=== PATIENT | male | born 1940 | race Caucasian/White ===

== ENCOUNTER 2020-05-11 11:25 | Inpatient (IN) | payer MEDICARE, BC ==
[2020-05-11 12:07] LABS: #Eosinphils 0.6 thou/uL (0.0-0.7); #Lymphocytes 2.6 thou/uL (1.20-3.40); #Monocytes 0.9 thou/uL (0.11-0.59); #Neutrophils 5.8 thou/uL (1.40-6.50); %Basophils 0.3 % (0.0-1.0); %Eosinophils 6.3 % (0.0-10.0); %Lymphocytes 25.9 % (21.0-51.0); %Monocytes 8.6 % (0.0-10.0); %Neutrophils 58.8 % (42.0-75.0); Hemoglobin 11.3 g/dL (14.0-18.0); Mean Corpuscular Hemoglobin 28.1 pg (27.0-31.0); Mean Corpuscular Volume 87.8 fL (78.0-98.0); Mean Platelet Volume 10.1 fL (7.4-10.4); Platelet Count 231 thou/uL (130-400); Red Blood Cell (RBC) Count 4.02 mill/uL (4.70-6.10); White Blood Cell (WBC) Count 9.9 thou/uL (4.8-10.8)
--- NOTE | 2020-05-11 12:12 | RAD ---
Exam: Chest one view HISTORY:Chest pain Comparison: 03/11/2020 FINDINGS: Cardiac silhouette:Cardiomegaly. Stable loop recorder and sternotomy wires. Aorta: Atherosclerosis. Pulmonary vessels: Normal Costophrenic angles: Clear Incidentals: Stable hiatal hernia. LUNGS: No masses or consolidation. Pneumothorax: None Osseous abnormalities: No acute abnormality IMPRESSION: 1. Atherosclerosis 2. No acute cardiopulmonary process.
[2020-05-11 12:26] LABS: ALT (SGPT) 10 U/L (8-55); AST (SGOT) 15 U/L (5-34); Albumin 3.7 g/dL (3.4-4.8); Alkaline Phosphatase 86 U/L (40-110); Anion Gap 17 mmol/L (10-20); BUN (Urea Nitrogen) 27 mg/dL (8.4-25.7); Bilirubin, Total 0.2 mg/dL (0.2-1.2); Calc. Creatinine Clearance 0 mL/min (70-130); Calcium 9.3 mg/dL (7.8-10.44); Carbon Dioxide 22 mmol/L (23-31); Chloride 106 mmol/L (98-107); Estimated GFR-MDRD 48; Globulin 2.4 g/dL (2.4-3.5); Glucose 280 mg/dL (83-110); Potassium 4.6 mmol/L (3.5-5.1); Protein, Total 6.1 g/dL (5.8-8.1); Sodium 140 mmol/L (136-145)
[2020-05-11 12:51] LABS: CKMB 2.5 ng/mL (0-6.6)
[2020-05-11] MEDS ORDERED: Metoprolol Tartrate 5 MG/5 ML VIAL ONE (13:32)
[2020-05-11] MEDS ORDERED: Nitroglycerin 2% Ointment 1 INCH/1 GM Packet ONE (13:32)
[2020-05-11] MEDS ORDERED: Iopamidol-370 76% 500 ML 1 ML ONE (13:50)
[2020-05-11 15:02] LABS: Troponin I 0.151 ng/mL (< 0.028)
--- NOTE | 2020-05-11 15:52 | CT ---
CT arteriogram chest with IV contrast and 3-D imaging HISTORY: Chest pain. Shoulder pain. FINDINGS: There is good contrast opacification pulmonary arteries and thoracic aorta with normal bran nikhil of the great vessels at the aortic arch. Postoperative changes mediastinum are apparent with calcification in the arterial structures. Nonenlarged, nonspecific lymph nodes are scattered about the mediastinum. No lobar consolidation, pleural fluid, or pneumothorax. Approximately one third of the stomach is abo ve the level of the diaphragm Within the partially visualized upper abdomen, left renal cyst and retroaortic left renal vein are ap parent. IMPRESSION : No CT evidence of pulmonary embolus. Moderate-sized hiatal hernia.
[2020-05-11] MEDS ORDERED: Ondansetron PF 4 MG/2 ML Vial IVP PRN (16:26)
[2020-05-11] MEDS ORDERED: Sodium Chloride 0.9% 1,000 ML IV SCH (16:26)
[2020-05-11] MEDS ORDERED: Ondansetron ODT 4 MG TAB SL PRN (16:26)
[2020-05-11 16:30] VITALS: BMI 27.0
[2020-05-11] MEDS ORDERED: Dextrose 50% Abboject 50 ML SYRINGE SLOW IVP PRN (16:30)
[2020-05-11] MEDS ORDERED: Dextrose 5% in Water 1,000 ML IV PRN (16:30)
[2020-05-11] MEDS ORDERED: Nitroglycerin 0.4 MG TAB (25 Tab Bottle) PO PRN (16:30)
[2020-05-11] MEDS: HumaLOG 300 UNITS/3 ML VIAL SC PRN ×2 (16:54→22:09)
--- NOTE | 2020-05-11 17:06 | HP ---
PRIMARY CARE PHYSICIAN: Dr. Scar Aiken. CHIEF COMPLAINT: "Bilateral shoulder pain that feels like it did when I had my CABG." HISTORY OF PRESENT ILLNESS: The patient is a pleasant 79-year-old male with past medical history significant for diabetes, TIAs, AFib, hypertension, high cholesterol, and recent CABG. The patient's is currently in the CCU at the hospital and he came to see her this morning, which he stated was a longer walk than he usually does. When he got home, home therapy was there waiting for him and he walked around a block with them. Shortly after where he began to have bilateral shoulder pain, he states that this is the same feeling that he had when he had his CABG 2 months ago except at that time he had chest pressure and at this time, he did not have chest pressure. He took 2 nitroglycerin at home, which did not help his pain and so then he called 911. The patient was diaphoretic at the time. Denies nausea. Denies any kind of injury to the shoulders. States since his CABG, he has not lifted anything heavier than a gallon of milk. In the ER today, they completed lab work and EKG and a chest x-ray. He was given one inch of nitro-bid, 500 ml of NS, and metoprolol tartrate IV 5mg. PAST MEDICAL HISTORY: Diabetes type 2, TIAs, multiple AFib, hypertension, high cholesterol. PAST SURGICAL HISTORY: Heart ablation, loop recorder, carotid endarterectomy, heart catheterization with a total of 3 stents placed, the last one was a year ago and a CABG x4, which was within the past 2 months. ALLERGIES: PENICILLIN AND SIMVASTATIN. MEDICATIONS: Patient unable to recall. SOCIAL HISTORY: The patient lives at home with his , she is currently in CCU after having heart surgery. Denies any alcohol or illicit drugs or smoking history. FAMILY HISTORY: Negative for any pertinent information at this time. REVIEW OF SYSTEMS: All other review of systems are negative unless noted in the HPI. PHYSICAL EXAMINATION: VITAL SIGNS: Blood pressure 154/72, pulse 68, respiratory rate 18, temperature 97.9, 99% on room air. GENERAL: The patient in no acute distress. Nontoxic. HEENT: Head; atraumatic, normocephalic. Extraocular muscles intact. PERRLA. Moist mucous membranes. NECK: No lymphadenopathy. Trachea midline. RESPIRATORY: Clear to auscultation bilaterally. No wheezing. No rhonchi. No rales. CARDIOVASCULAR: Regular rate and rhythm. No murmurs, no rubs, no gallops. ABDOMEN: Bowel sounds present. No distention. No mass. CHEST: Well-healed CABG scar at sternum. EXTREMITIES: No cyanosis, no clubbing, no edema. A well-healed CABG to the left upper thigh graft site. NEUROLOGIC: No focal deficits. Cranial nerves intact. PSYCHIATRIC: Normal affect. Normal behavior. LABORATORY DATA: EKG showed sinus rhythm, prolonged QT 76 beats per minute. Initial troponin 0.123. BNP 379.7. D-dimer 0.48. CK-MB 2.5. Sodium 140, potassium 4.6, BUN 27, creatinine 1.42, GFR 48, glucose 280. White blood cells 9.9, hemoglobin 11.3, hematocrit 35.3, platelets 231. Chest x-ray shows atherosclerosis and no acute cardiopulmonary process, stable loop recorder and sternotomy wires. IMPRESSION AND PLAN: 1. Chest pain, rule out acute coronary syndrome. We will continue to trend troponins. First on eis indeterminate, if they continue to rise, will consult Cardiology. CTA ordered due to the elevated D-dimer, of note the patient is on Eliquis. Cardiac stress test ordered for the morning at this time, will cancel if troponins continue to rise. We will monitor the patient on telemetry overnight. Nothing to drink after midnight. 2. Hypertension, stable at this time. We can restart home medications and have antihypertensive PRN medications available as needed. 3. Diabetes, Accu-Cheks a.c. and nightly with sliding scale insulin. 4. Deep venous thrombosis prophylaxis covered with Eliquis. Gastrointestinal prophylaxis in place. 5. The patient wishes to be a full code and surrogate decision maker is his , Diana Posey. Pt. discussed with Dr. Hernando Sharma ID: [id number] DENNY
[2020-05-11 20:23] LABS: Troponin I 0.602 ng/mL (< 0.028)
[2020-05-11] MEDS: Carvedilol 3.125 MG TAB PO SCH (22:08)
[2020-05-11] MEDS: Nitroglycerin 2% Ointment 1 INCH/1 GM Packet TOP SCH (22:08)
--- NOTE | 2020-05-11 22:15 | CON ---
DATE OF CONSULTATION: 05/11/2020 INDICATION FOR CONSULTATION: A 79-year-old gentleman with history of coronary artery disease, underwent bypass surgery approximately 2 months ago at [facility] with either triple or quadruple bypass. He said he had quadruple bypass performed by Dr. Eisenberg. This gentleman had been doing very well after his surgery, then presented to the emergency room after having some shoulder discomfort and chest discomfort similar to what he had prior to undergoing bypass surgery. He had been doing very well since his bypass, was at home, had been having physical therapy and after the physical therapy, he went to lie down and noticed he had some chest discomfort. He did take some nitroglycerin, but does not state he had any relief. He took another nitroglycerin, still no relief and he then presented to the emergency room where EKG showed some normal sinus rhythm with decreased R-wave progression in V1 through V3, but no acute ST-segment changes were noted. Cardiac enzymes are indeterminate with a troponin I of 0.123, increased up to 0.151. His BNP was 379. At this time, he denies any chest pain, is very comfortable and answers to questions appropriately. He does not recall exactly what medications he is taking. However, review of the records shows that he was taking medications in the past, but there is no indication he was taking a beta maribell. He is somewhat bradycardic, but otherwise appears to be relatively stable. I do not know whether he was placed on a beta maribell after bypass surgery or not. I do not know what his baseline heart rate is, but today the heart rate today was up to 76 beats per minute, but on the monitor it was 59. At this time in the emergency room, there was no evidence of pulmonary emboli noted. He was noted to have a hiatal hernia. Chest x-ray was unremarkable. At this time, he appears to be relatively stable. We will continue to monitor the patient. PAST MEDICAL HISTORY: Significant for the coronary artery disease, bypass surgery. He has had angioplasty and stent placements prior to undergoing the bypass surgery. He has a history of intermittent atrial fibrillation in the past. He remains in sinus rhythm at this time, and history of diabetes, history of TIAs, history of hypertension, hypercholesterolemia. He apparently has had an ablation in the past for possibly atrial fibrillation. He is unsure exactly what he wants. He also has a loop recorder implanted. This was done by Dr. Hazel at [facility]. He has had bilateral carotid endarterectomy performed by Dr. Shailesh Eisenberg. His 1st angioplasty and stent placements were about 5 or 6 years ago and then he also had further stents, he said prior to undergoing bypass surgery. His. SOCIAL HISTORY: He is . He has 1 son who is alive and well. He has no alcohol or tobacco abuse. 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 FAMILY HISTORY: Noncontributory except for one brother who had some myocardial infarction in his 30s, but when he was in his 50s. ALLERGIES: HE IS ALLERGIC TO PENICILLIN AND SIMVASTATIN. MEDICATIONS: He is unclear about what medicines he is taking, but he did admit to takin. Losartan. 2. Hydrochlorothiazide. 3. Lantus insulin. 4. Eliquis. 5. Gemfibrozil. 6. CoQ10. 7. Aspirin. RE VIEW OF SYSTEMS: Unremarkable except for the patient says he wears glasses. Has gastroesophageal reflux disease. Has occasional leg cramps and the remainder as was noted in history of present illness. PHYSICAL EXAMINATION: GENERAL: Reveals a well-developed, well-nourished, very pleasant gentleman who is in no acute distress at this time and denies any chest pain or shortness of breath. VITAL SIGNS: Shows a blood of pressure 159/81, heart rate is 59 to 70s, shows a sinus rhythm, temperature he is afebrile, respiratory rate 16. HEENT: Shows the head to be normocephalic and atraumatic. He has well-healed surgical incision after a carotid endarterectomy. Carotid pulses are present. There were no bruits noted chest was clear to auscultation without rales, rhonchi, or wheezing. He has a well-healed midline surgical incision after median sternotomy cardiovascular reveals a regular rate and rhythm. Normal S1, S2. I do not hear an S3 nor an S4. There were no significant murmurs, heaves, thrills, bruits, or rubs noted. ABDOMEN: Soft and nontender with positive bowel sounds. No organomegaly or masses noted. EXTREMITIES: Femoral pulses are present. Popliteal pulses are present. Pedal pulses are difficult to palpate. He has well-healed surgical incision in the left leg after saphenous vein graft retrieval. There is no edema noted. NEUROLOGIC: The patient appears to be fully intact. SKIN: Warm and dry. IMAGING: EKG shows a normal sinus rhythm with decreased R-wave progression in V1 through V3, but no acute changes. The QT does appear to be slightly prolonged. LABORATORY DATA: Shows the troponin as noted above. The BNP was 379. Sodium was 140, potassium 4.6, BUN was 27 with a creatinine of 1.42, and blood sugar was 280. D-dimer was 0.48, hemoglobin 11.3, WBC of 9.9, and platelet count of 231,000. IMPRESSION: 1. A 79-year-old patient with probable non ST-segment elevation myocardial infarction with mild increase in cardiac enzymes. We will continue to trend the enzymes. He is pain free at this time and no significant EKG changes. Should the enzymes continue to go upwards, then we may need to perform a cardiac catheterization tomorrow to evaluate the saphenous vein grafts and also to evaluate further possible progression of coronary artery disease. I do not have an old cardiac catheterization report nor do I have his bypass surgery report, which would be certainly advisable and helpful should we do that if we needed to undergo a bypass surgery. At this time, he is stable. I will start him on a low dose of beta blockers in this patient. We will continue the aspirin. We will start him on his losartan for the hypertension and most likely will give at least 1 dose of Lovenox, if he has not already had that in the emergency room. 2. History of diabetes. It will be dealt with by the primary care service. 3. History of transient ischemic attacks. This will also be dealt by the primary care service. 4. History of atrial fibrillation. He remains in sinus rhythm at this time. At this time, we will hold the Eliquis in case he needs to undergo cardiac catheterization. 5. He can certainly follow up with Dr.Bau Wong, his primary concrete bucket hooker, to determine whether or not he needs to continue the Eliquis in the future. 6. Stage 3 chronic kidney disease. His creatinine is 1.42, but remained stable. 7. At this time, overall the patient is stable. We will continue to trend the enzymes. We will try to obtain records from [facility] concerning his previous cardiac catheterization, bypass surgeries as well as an echocardiogram that was performed hopefully within the last couple of months. We will also try to obtain more recent list of his medications since he does not know the medication. It does not appear that he is on a beta maribell, we will start a very low dose of Coreg, half of the 3.125 mg tablet. Job ID: [id number] MTDD
[2020-05-11] MEDS ORDERED: Enoxaparin Sodium 80 MG/0.8 ML SYRINGE SC SCH (23:00)
[2020-05-11 23:18] LABS: PTT 30.7 sec (22.9-36.1); Prothrombin Time 13.4 sec (12.0-14.7)
[2020-05-11 23:45] LABS: Troponin I 1.011 ng/mL (< 0.028)
[2020-05-12] MEDS: Nitroglycerin 2% Ointment 1 INCH/1 GM Packet TOP SCH ×3 (05:39→20:49)
[2020-05-12] MEDS: HumaLOG 300 UNITS/3 ML VIAL SC PRN ×3 (06:00→20:49)
[2020-05-12] MEDS: Carvedilol 3.125 MG TAB PO SCH ×2 (08:17→20:50)
[2020-05-12] MEDS ORDERED: Losartan 25 MG TAB PO SCH (09:00)
[2020-05-12] MEDS ORDERED: Aspirin 325 mg Enteric Coated Tablet PO SCH ×2 (09:00→17:45)
[2020-05-12] MEDS ORDERED: Rivaroxaban 2.5 MG TAB PO SCH ×2 (09:43→21:00)
[2020-05-12] MEDS ORDERED: Empagliflozin 10 MG TAB PO SCH (10:00)
[2020-05-12 10:16] LABS: Troponin I 1.453 ng/mL (< 0.028)
[2020-05-12 14:51] LABS: Critical Call Chem Troponin I RESULT DECREASING; Troponin I 1.294 ng/mL (< 0.028)
--- NOTE | 2020-05-12 17:44 | PDOC.HOSPP ---
- Subjective Encounter Date: 05/12/20 Encounter Time: 10:50 Subjective: Pt seen for followup for NSTEMI. Denies chest pain or shortness of breath. - Objective Vital Signs & Weight: Vital Signs (12 hours) Temp Pulse Resp BP Pulse Ox 05/12/20 15:16 97.8 F 57 L 16 130/58 L 97 05/12/20 10:59 98.4 F 61 16 135/65 97 05/12/20 08:16 98.5 F 64 16 146/67 H 97 05/12/20 06:52 96 Weight Weight 188 lb 9 oz I&O: 05/11/20 05/12/20 05/13/20 06:59 06:59 06:59 Intake Total 240 Balance 240 Result Diagrams: 05/11/20 11:44 05/11/20 11:44 Additional Labs: Accuchecks 05/12/20 05/12/20 05/12/20 16:38 10:45 05:46 POC Glucose 143 H 176 H 203 H 05/11/20 19:37 POC Glucose 277 H Labs and MARs reviewed by me EKG Reviewed by me: Yes (Tele: NSR) Hospitalist ROS - Review of Systems Cardiovascular: denies: chest pain, palpitations, orthopnea, paroxysmal noc. dyspnea, edema, light headedness Gastrointestinal: denies: nausea, vomiting, abdominal pain, diarrhea, constipation, melena, hematochezia - Medication Medications: Active Medications Generic Name Dose Route Start Last Admin Trade Name Freq PRN Reason Stop Dose Admin Insulin Human Lispro 0 units 05/11/20 16:30 05/12/20 11:45 Humalog SC 2 unit .MILD SLIDING SCALE PRN Administration Mild Correctional Scale Insulin Human Lispro 0 units 05/11/20 16:30 05/11/20 22:09 Humalog SC 3 unit .BEDTIME SLIDING SC PRN Administration Bedtime Correctional Scale Nitroglycerin 0.5 inch 05/11/20 22:00 05/12/20 14:59 Nitro-Bid 2% Ointment TOP 0.5 inch Q8HR ROGELIO Administration Pantoprazole Sodium 40 mg 05/12/20 09:00 05/12/20 08:17 Protonix PO 40 mg DAILY ROGELIO Administration - Exam General Appearance: awake alert Eye: anicteric sclera ENT: moist mucosa Neck: supple Heart: RRR Respiratory: CTAB, no rales Gastrointestinal: soft, non-tender Extremities: no cyanosis Psychiatric: normal affect, normal behavior Hosp A/P (1) NSTEMI (non-ST elevated myocardial infarction) Code(s): I21.4 - NON-ST ELEVATION (NSTEMI) MYOCARDIAL INFARCTION Status: Acute (2) DM2 (diabetes mellitus, type 2) Status: Chronic (3) HTN (hypertension) Code(s): I10 - ESSENTIAL (PRIMARY) HYPERTENSION Status: Chronic (4) Dyslipidemia Code(s): E78.5 - HYPERLIPIDEMIA, UNSPECIFIED Status: Chronic - Plan Continue aspirin Appreciate cardiology input. HTN controlled. Continue accuchecks and insulin sliding scale. Continue Lipitor. Cardiac Rehab.
[2020-05-12] MEDS: Rivaroxaban 2.5 MG TAB PO SCH (20:50)
[2020-05-12] MEDS ORDERED: Tamsulosin HCl 0.4 MG CAP PO SCH (21:00)
[2020-05-12] MEDS ORDERED: Atorvastatin Calcium 10 MG TAB PO SCH ×2 (21:00)
[2020-05-13 05:31] LABS: #Basophils 0.1 thou/uL (0.0-0.2); #Eosinphils 0.9 thou/uL (0.0-0.7); #Lymphocytes 3.2 thou/uL (1.20-3.40); #Neutrophils 5.5 thou/uL (1.40-6.50); %Basophils 0.9 % (0.0-1.0); %Eosinophils 8.4 % (0.0-10.0); %Lymphocytes 29.9 % (21.0-51.0); %Neutrophils 51.8 % (42.0-75.0); Hemoglobin 11.1 g/dL (14.0-18.0); Mean Corpuscular HGB CONC 31.3 g/dL (32.0-36.0); Mean Corpuscular Hemoglobin 26.9 pg (27.0-31.0); Mean Corpuscular Volume 85.9 fL (78.0-98.0); Mean Platelet Volume 9.8 fL (7.4-10.4); Platelet Count 260 thou/uL (130-400); Red Blood Cell (RBC) Count 4.13 mill/uL (4.70-6.10); White Blood Cell (WBC) Count 10.6 thou/uL (4.8-10.8)
[2020-05-13 05:50] LABS: Anion Gap 14 mmol/L (10-20); BUN (Urea Nitrogen) 29 mg/dL (8.4-25.7); Calc. Creatinine Clearance 56 mL/min (70-130); Calcium 9.5 mg/dL (7.8-10.44); Carbon Dioxide 24 mmol/L (23-31); Chloride 106 mmol/L (98-107); Estimated GFR-MDRD 52; Glucose 175 mg/dL (83-110); Potassium 4.1 mmol/L (3.5-5.1); Sodium 140 mmol/L (136-145)
[2020-05-13] MEDS: Nitroglycerin 2% Ointment 1 INCH/1 GM Packet TOP SCH ×2 (08:27→13:19)
[2020-05-13] MEDS ORDERED: Losartan 25 MG TAB PO SCH (09:00)
[2020-05-13] MEDS ORDERED: Empagliflozin 10 MG TAB PO SCH (09:00)
[2020-05-13] MEDS ORDERED: Aspirin 325 mg Enteric Coated Tablet PO SCH (09:00)
[2020-05-13] MEDS ORDERED: Amiodarone 200 MG TAB PO SCH (09:00)
[2020-05-13] MEDS: Rivaroxaban 2.5 MG TAB PO SCH (09:50)
[2020-05-13] MEDS: Carvedilol 3.125 MG TAB PO SCH (09:51)
[2020-05-13] MEDS ORDERED: Acetaminophen 325 MG TAB PO PRN (11:15)
[2020-05-13 11:34] VITALS: BP 115/62; TEMP 98.2
--- NOTE | 2020-05-13 12:16 | PDOC.CPN ---
- Subjective Date: 05/13/20 Time: 12:35 Interval history: The pt seen and examined. No overnight events. He cont. mild numbness and achy discomfort to bilat shoulders. However, he did not have the symptom, SOB or other cardiac complaints while he was walking around nurse station with nurse today. - Objective Allergies/Adverse Reactions: Allergies Allergy/AdvReac Type Severity Reaction Status Date / Time Penicillins Allergy Unknown Verified 05/12/20 09:38 simvastatin Allergy Unknown Verified 05/12/20 09:38 Visit Medications: Current Medications Acetaminophen (Tylenol) 650 mg PO Q6H PRN PRN Reason: Headache/Fever or Pain Last Admin: 05/13/20 11:23 Dose: 650 mg Amiodarone HCl (Cordarone) 100 mg PO DAILY [facility] Last Admin: 05/13/20 09:51 Dose: 100 mg Aspirin (Ecotrin) 325 mg PO DAILY [facility] Last Admin: 05/13/20 09:50 Dose: 325 mg Atorvastatin Calcium (Lipitor) 10 mg PO HS [facility] Last Admin: 05/12/20 20:50 Dose: 10 mg Carvedilol (Coreg) 3.125 mg PO [phone] [facility] Last Admin: 05/13/20 09:51 Dose: 3.125 mg Dextrose/Water (Dextrose 50%) 25 gm SLOW IVP PRN PRN PRN Reason: Hypoglycemia Glucagon (Glucagon) 1 mg IM PRN PRN PRN Reason: Hypoglycemia Dextrose/Water (D5w) 1,000 mls @ 0 mls/hr IV .Q0M PRN PRN Reason: Hypoglycemia Insulin Human Lispro (Humalog) 0 units SC .MILD SLIDING SCALE PRN PRN Reason: Mild Correctional Scale Last Admin: 05/12/20 11:45 Dose: 2 unit Insulin Human Lispro (Humalog) 0 units SC .BEDTIME SLIDING SC PRN PRN Reason: Bedtime Correctional Scale Last Admin: 05/12/20 20:49 Dose: 2 unit Isosorbide Mononitrate (Imdur Er) 30 mg PO DAILY [facility] Last Admin: 05/13/20 09:51 Dose: 30 mg Losartan Potassium (Cozaar) 100 mg PO DAILY [facility] Last Admin: 05/13/20 09:51 Dose: 100 mg Miscellaneous Medication (Jardiance) 10 mg PO DAILY [facility] Last Admin: 07/02/20 09:50 Dose: 10 mg Nitroglycerin (Nitrostat) 0.4 mg PO Q5MIN PRN PRN Reason: Chest Pain Nitroglycerin (Nitro-Bid 2% Ointment) 0.5 inch TOP Q8HR [facility] Last Admin: 05/13/20 08:27 Dose: Not Given Pantoprazole Sodium (Protonix) 40 mg PO DAILY [facility] Last Admin: 05/13/20 09:51 Dose: 40 mg Rivaroxaban (Xarelto) 2.5 mg PO BID [facility] Last Admin: 05/13/20 09:50 Dose: 2.5 mg Sodium Chloride (Flush - Normal Saline) 10 ml IVF PRN PRN PRN Reason: Saline Flush Tamsulosin HCl (Flomax) 0.4 mg PO HS [facility] Last Admin: 05/12/20 20:50 Dose: 0.4 mg Vital Signs & Weight: Vital Signs Temp Pulse Resp BP BP BP Pulse Ox 05/13/20 11:31 98.2 F 82 16 115/62 95 05/13/20 07:21 98.3 F 81 16 126/65 94 L 05/13/20 03:14 98.4 F 70 16 138/65 96 Weight 188 lb 9 oz - Physical Exam General: alert & oriented x3 HEENT: mucus membranes moist Neck: supple neck Cardiac: regular rate and rhythm, S1/S2 Lungs: decreased breath sounds Extremities: no edema - Labs Result Diagrams: 05/13/20 05:13 05/13/20 05:13 Troponin/CKMB CK-MB (CK-2) 2.5 ng/mL (0-6.6) 05/11/20 11:44 Troponin I 1.294 ng/mL (< 0.028) H* 05/12/20 14:04 - Telemetry Sinus rhythms and dysrhythmias: sinus rhythm - Assessment/Plan Assessment/Plan: 1. NSTEMI type 1 - he cont. having mild numbness and achy like discomfort to bilat shoulders which did not aggravete with exercise with nurse. Waiting for trop level. 2. CAD with s/p CABG x4 in 02/2020 with MEHTA-LAD, RSVG-diag, RSVG-distal OM, RSVG-PDA - Per OR report by Dr Eisenberg, the pt's targets were good conduit but small targets; On Coreg, Losartan, ASA, and Lipitor 3. HTN - stable with current med 4. 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 CKD - slightly improving 6. DM type 2 7. HLD - on Statin MAR reviewed. * Dr Campos's pt ([facility]) * EP: Dr Hazel * From Cardiac standpoint, the pt is stable to d/c home. The pt must f/u with Dr Campos in 1 wk. Pt. seen and eval. by me. I agree with the A/P by the MEDIA SENIOR RECRUITER. He tells me he feels great. He has NSTwave changes. TI still trending down. Chest clear. RRR. He is stable from a cardiac standpoint for d/c. [email or web address]
[2020-05-13 12:28] LABS: Troponin I 0.535 ng/mL (< 0.028)
[2020-05-13] MEDS: HumaLOG 300 UNITS/3 ML VIAL SC PRN (13:19)
--- NOTE | 2020-05-13 15:07 | DIS ---
DATE OF ADMISSION: 05/11/2020 DATE OF DISCHARGE: 05/13/2020 PRIMARY CARE PROVIDER: Dr. Scar Aiken. DISCHARGE DIAGNOSES: 1. [id number] myocardial infarction. 2. Chronic kidney disease, stage 3. 3. History of diabetes mellitus, type 2. CONDITION OF THE PATIENT ON THE DAY OF DISCHARGE: Stable. I assessed Mr. Posey on the day of discharge. He denies any chest pain or shortness of breath. Vital signs are stable. S1 and S2 are heard, regular. Lungs are clear to auscultation bilaterally. DISCHARGE MEDICATIONS: He has been started on Coreg 3.125 mg 2 times a day and isosorbide mononitrate 30 mg daily. Otherwise, no change was made to his pre-admission home medications, which include: 1. Nitroglycerin p.r.n. 2. Tylenol p.r.n. 3. Amiodarone 100 mg daily. 4. Apixaban 2.5 mg 2 times a day. 5. Aspirin 162 mg daily. 6. Lipitor 10 mg daily. 7. Vitamin D3, 1000 units daily. 8. Colchicine 0.6 mg daily. 9. Famotidine 20 mg 2 times a day. 10. Gemfibrozil 600 mg 2 times a day. 11. Lantus insulin 30 units at bedtime and 13 units in the morning. 12. Cozaar 100 mg daily. 13. Magnesium oxide 400 mg 2 times a day. 14. Metformin 500 mg 2 times a day. 15. Multivitamins one tablet daily. 16. Protonix 40 mg daily. 17. Sertraline 50 mg daily. 18. Tamsulosin 0.4 mg daily. 19. Coenzyme Q 100 mg daily. POST-ACUTE CARE FOLLOWUP: With primary care provider in 3 days and with his plasma processor, Dr. Campos on May 21, 2020 at 1 p.m. ACTIVITY: As tolerated. DIET: Heart healthy and diabetic. DISCHARGE DESTINATION: Home. TIME SPENT: Total amount of time spent coordinating this discharge: 33 minutes. Job ID: [id number]
[2020-05-13] MEDS ORDERED: Apixaban 2.5 MG TAB PO SCH (21:00)
[2020-05-14] MEDS ORDERED: Aspirin 81 mg Enteric Coated Tablet PO SCH (09:00)
== END 2020-05-13 16:24 | disposition home health service (06) | DRG 281 ==
LOC: ERS 11:25 → 2SE 16:15
PROVIDERS: ADMIT Internal Medicine; ATTEND Internal Medicine
DX: I21.4 Non-ST elevation (NSTEMI) myocardial infarction (principal); I48.92 Unspecified atrial flutter; N18.3 Chronic kidney disease, stage 3 (moderate); E78.00 Pure hypercholesterolemia, unspecified; I48.91 Unspecified atrial fibrillation; I12.9 Hypertensive chronic kidney disease with stage 1 through stage 4 chronic kidney disease, or unspecified chronic kidney disease; E11.22 Type 2 diabetes mellitus with diabetic chronic kidney disease; E78.5 Hyperlipidemia, unspecified; Z95.1 Presence of aortocoronary bypass graft; Z86.73 Personal history of transient ischemic attack (TIA), and cerebral infarction without residual deficits; Z79.01 Long term (current) use of anticoagulants; Z95.5 Presence of coronary angioplasty implant and graft; Z88.0 Allergy status to penicillin; Z88.8 Allergy status to other drugs, medicaments and biological substances; Z79.4 Long term (current) use of insulin
CPT/HCPCS: 36415; 36416; 71045; 71275; 80048; 80053; 82550; 82553; 83880; 84484; 85025; 85379; 85610; 85730; 93005; 93010; 93306; 94760; J1650; Q9967

== ENCOUNTER 2020-05-18 22:56 | Inpatient (IN) | payer MEDICARE, BC ==
--- NOTE | 2020-05-18 23:23 | RAD ---
Chest AP view INDICATION: Chest pain COMPARISON: May 11, 2020 FINDINGS: Lungs: The lungs are clear Cardiac silhouette: There is stable moderate cardiomegaly. There is stable post-CABG change. There i s a stable loop recorder overlying the left chest wall. Pulmonary vasculature: Normal Pleural spaces: No pleural effusion or pneumothorax is demonstrated. Upper abdomen: No abnormality seen. Osseous structures: No acute osseous abnormality. Additional findings: None. IMPRESSION: No acute cardiopulmonary abnormality.
[2020-05-18 23:37] LABS: #Basophils 0.1 thou/uL (0.0-0.2); #Eosinphils 0.8 thou/uL (0.0-0.7); #Neutrophils 4.7 thou/uL (1.40-6.50); %Basophils 0.6 % (0.0-1.0); %Eosinophils 8.6 % (0.0-10.0); %Lymphocytes 31.3 % (21.0-51.0); %Monocytes 10.7 % (0.0-10.0); %Neutrophils 48.8 % (42.0-75.0); Hemoglobin 10.8 g/dL (14.0-18.0); Mean Corpuscular HGB CONC 32.9 g/dL (32.0-36.0); Mean Corpuscular Hemoglobin 28.2 pg (27.0-31.0); Mean Corpuscular Volume 85.8 fL (78.0-98.0); Platelet Count 270 thou/uL (130-400); Red Blood Cell (RBC) Count 3.83 mill/uL (4.70-6.10); White Blood Cell (WBC) Count 9.7 thou/uL (4.8-10.8)
[2020-05-18] MEDS ORDERED: Nitroglycerin 50 MG/250 ML BOT 250 ML ONE (23:37)
[2020-05-19 00:01] LABS: ALT (SGPT) 15 U/L (8-55); AST (SGOT) 16 U/L (5-34); Albumin 3.5 g/dL (3.4-4.8); Alkaline Phosphatase 96 U/L (40-110); Anion Gap 14 mmol/L (10-20); BUN (Urea Nitrogen) 26 mg/dL (8.4-25.7); Bilirubin, Total 0.2 mg/dL (0.2-1.2); Calc. Creatinine Clearance 0 mL/min (70-130); Calcium 8.8 mg/dL (7.8-10.44); Carbon Dioxide 21 mmol/L (23-31); Chloride 108 mmol/L (98-107); Estimated GFR-MDRD 44; Globulin 2.6 g/dL (2.4-3.5); Glucose 373 mg/dL (83-110); Potassium 4.5 mmol/L (3.5-5.1); Protein, Total 6.1 g/dL (5.8-8.1); Sodium 138 mmol/L (136-145)
[2020-05-19 00:22] LABS: CKMB 1.8 ng/mL (0-6.6)
[2020-05-19] MEDS ORDERED: Morphine 4 MG/ML VIAL SLOW IVP PRN (01:58)
[2020-05-19] MEDS ORDERED: Nitroglycerin 50 MG/250 ML BOT 250 ML IVPB SCH (02:00)
[2020-05-19] MEDS ORDERED: Dextrose 50% Abboject 50 ML SYRINGE SLOW IVP PRN (02:00)
[2020-05-19] MEDS ORDERED: Dextrose 5% in Water 1,000 ML IV PRN (02:00)
[2020-05-19] MEDS ORDERED: Metoprolol Tartrate 5 MG/5 ML VIAL IVP PRN (02:01)
[2020-05-19 02:29] LABS: #Basophils 0.1 thou/uL (0.0-0.2); #Eosinphils 0.9 thou/uL (0.0-0.7); #Lymphocytes 3.3 thou/uL (1.20-3.40); #Monocytes 1.1 thou/uL (0.11-0.59); #Neutrophils 5.2 thou/uL (1.40-6.50); %Basophils 1.1 % (0.0-1.0); %Eosinophils 8.4 % (0.0-10.0); %Lymphocytes 31.1 % (21.0-51.0); %Monocytes 10.1 % (0.0-10.0); %Neutrophils 49.4 % (42.0-75.0); Hemoglobin 10.8 g/dL (14.0-18.0); Mean Corpuscular HGB CONC 32.1 g/dL (32.0-36.0); Mean Corpuscular Hemoglobin 27.6 pg (27.0-31.0); Mean Corpuscular Volume 85.9 fL (78.0-98.0); Mean Platelet Volume 9.5 fL (7.4-10.4); Platelet Count 290 thou/uL (130-400); Red Blood Cell (RBC) Count 3.92 mill/uL (4.70-6.10); White Blood Cell (WBC) Count 10.5 thou/uL (4.8-10.8)
--- NOTE | 2020-05-19 02:51 | HP ---
REASON FOR ADMISSION: Bilateral shoulder pain. HISTORY OF PRESENT ILLNESS: This is a 79-year-old male patient who is presenting with bilateral shoulder pain. He is known to have coronary artery disease, status post CABG in February of 2020 and after that, he had an admission to our hospital on May 11 for bilateral shoulder pain that felt like when he had his CABG. During his stay, his troponin did increase. He was seen by Cardiology. It was thought that no further workup is needed. He was sent home approximately 3 days ago and today his , who is sick as well, was admitted to our hospital, so patient has been here under a lot of stress dealing with her sickness and today, he had recurrence of his bilateral shoulder pain. He presented to the ER, found to be in hypertensive emergency. His pain reminded him of when he had the open-heart surgery. He was started on nitroglycerin drip and feels a bit better. The patient describes the pain as dull in nature, initially severe, but currently mild, not associated with shortness of breath, no diaphoresis. The pain is more on the left than the right. He reports anxiety as well. I did review his records and the patient was recently discharged from this hospital on May 13 and diagnosed with non-ST elevation AZ. His EKG did not show any significant changes and since his troponin did not go further upward, cardiac cath was not done. PAST MEDICAL HISTORY: 1. Carotid disease status, post CABG. 2. Diabetes. 3. TIA. 4. Atrial fibrillation. SOCIAL HISTORY: He does not drink alcohol, does not smoke. FAMILY HISTORY: His brother had an AZ at age 30. ALLERGIES: TO PENICILLIN AND SIMVASTATIN. REVIEW OF SYSTEMS: All systems reviewed and except the above mentioned, found to be negative. PHYSICAL EXAMINATION: GENERAL: Awake, alert, oriented, does not appear in distress. VITAL SIGNS: His blood pressure is 160/90, heart rate of 82, respiratory rate of 21. HEENT: Head is nontraumatic, normocephalic. Pupils equal, reactive. Extraocular movements are intact. Nonicteric sclerae. Well-injected conjunctivae. Oral mucosa normal. Nasal mucosa normal. NECK: Supple. No adenopathy. No murmur. Thyroid is not palpable. Trachea is midline. No supraclavicular adenopathy. HEART: S1, S2 regular. No murmur. No gallops. No friction rubs. No displacement of PMI. LUNGS: Clear to auscultation bilaterally. No wheezes, rhonchi, or crackles. ABDOMEN: Bowel sounds are positive, nontender abdomen. No hepatomegaly. EXTREMITIES: No lower extremity edema. No cyanosis noted on exam. NEUROLOGIC: Cranial nerves 2 through 12 within normal limits. Normal motor function. Normal sensory function. Normal reflexes. LABORATORY DATA: Blood work shows a WBC of 9.7, hemoglobin 10.8, platelets of 270. INR 1. Sodium 138; potassium 4.5; bicarb 21; creatinine 1.53, previous creatinine 1.33; glucose 373. Troponin 0.099. Last troponin on the 2nd was 0.535. Chest x-ray shows no acute disease. EKG shows normal sinus rhythm, no major changes compared to previous EKG per my read. ASSESSMENT AND PLAN: This is a 79-year-old male patient who is presenting with recurrence of his bilateral shoulder pain, also hypertensive emergency. Cardiac: The patient will be admitted to the intensive care unit. He will be on a nitroglycerin drip. We will provide him with blood pressure control with IV morphine on as needed basis for pain. We will consult Cardiology. We will continue trending his cardiac enzymes. I am awaiting for his med rec to be done to reconcile his medication. Endocrinology: He will be on insulin sliding scale and we will reconcile his home medications when available. For deep venous thrombosis prophylaxis, he is on Eliquis. Would continue with that medication. He is very anxious. We will have Ativan on as needed basis for his anxiety. We did discuss his code status and he wishes to be a full code. Renal system, electrolytes: The patient does have worsening of his kidney function. We will recheck his electrolytes in the morning. Job ID: [id number]
[2020-05-19 02:57] LABS: Troponin I 0.151 ng/mL (< 0.028)
[2020-05-19 03:10] LABS: Anion Gap 14 mmol/L (10-20); BUN (Urea Nitrogen) 26 mg/dL (8.4-25.7); Calc. Creatinine Clearance 0 mL/min (70-130); Calcium 8.7 mg/dL (7.8-10.44); Carbon Dioxide 20 mmol/L (23-31); Chloride 109 mmol/L (98-107); Estimated GFR-MDRD 49; Glucose 271 mg/dL (83-110); Potassium 4.5 mmol/L (3.5-5.1); Sodium 138 mmol/L (136-145)
--- NOTE | 2020-05-19 08:53 | CON ---
DATE OF CONSULTATION: 05/19/2020 REASON FOR CONSULTATION: ICU placement. This encompassed 50 minutes of time, of that time, greater than 50% was spent with the patient and/or the patient's unit in the hospital. HISTORY OF PRESENT ILLNESS: This is a 79-year-old male who was brought to the emergency room last night with shoulder pain, which apparently is thought to be an anginal equivalent. He was found to have elevated blood pressures, placed on nitroglycerin drip and had resolution of his shoulder pain. About 2 months ago, he had a quadruple bypass surgery at [facility] by Dr. Shailesh Eisenberg. He was in the hospital here several days ago with almost identical symptoms. He was seen by Dr. Vincent. 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 Currently, he is not having chest pain, but is on a nitroglycerin drip. PAST MEDICAL HISTORY: 1. Coronary artery disease. 2. Coronary artery bypass grafting surgery. 3. Coronary stent placement. 4. Atrial fibrillation. 5. Diabetes mellitus. 6. TIAs. 7. Hypertension. 8. Hyperlipidemia. 9. Cardiac ablation. 10. Atrial fibrillation. SOCIAL HISTORY: Nonsmoker. Does not consume alcohol. 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 ALLERGIES: PENICILLIN AND SIMVASTATIN. MEDICATIONS: Prior to admission; 1. Losartan. 2. Hydrochlorothiazide. 3. Lantus insulin. 4. Eliquis. 5. Gemfibrozil. 6. Coenzyme Q10. 7. Aspirin. REVIEW OF SYSTEMS: 12-point review of systems is otherwise negative. PHYSICAL EXAMINATION: VITAL SIGNS: Heart rate 77, blood pressure 111/64, sat 99%, respiratory rate in the 20s. HEENT: Unremarkable. NECK: No adenopathy or JVD. CHEST: Clear to auscultation. He has old median sternotomy scars well healed. LUNGS: Clear. ABDOMEN: Soft and nontender to palpation. EXTREMITIES: No clubbing, cyanosis, or edema. LABORATORY DATA: Sodium 130, potassium 4.5, chloride 109, CO2 of 20, BUN 26, creatinine 1.4, glucose 271. Troponin 1.5. White blood cell count 10, hematocrit 33.7, and platelet count 290. ASSESSMENT: 1. Malignant hypertension. 2. Shoulder pain, which seems to have been some type of anginal equivalent. 3. Diabetes mellitus. 4. Coronary artery disease, status post recent coronary artery bypass grafting surgery. 5. Chronic renal insufficiency. 6. Non-Q-wave myocardial infarction. PLAN: Basically, the patient needs to be re-evaluated by Cardiology. In the meantime, he will continue the nitroglycerin drip. Do not seem to be any pulmonary concerns at this time, so I will follow from a distance. Job ID: [id number]
[2020-05-19] MEDS ORDERED: Non-Formulary Item 1 EACH (Famotidine [Famotidine] 20 MG) PO SCH (09:00)
[2020-05-19] MEDS ORDERED: Amiodarone 200 MG TAB PO SCH (09:00)
[2020-05-19] MEDS ORDERED: Aspirin Chewable 81 MG TAB PO SCH (09:00)
[2020-05-19] MEDS: Losartan 25 MG TAB PO SCH (09:56)
--- NOTE | 2020-05-19 09:56 | PDOC.HOSPP ---
- Subjective Encounter Date: 05/19/20 Encounter Time: 09:55 Subjective: Mr. Posey eas seen today in follow-up of NSTEMI. He is doing a bit better. He is now chest pain free. - Objective Vital Signs & Weight: Vital Signs (12 hours) Temp Pulse Ox 05/19/20 08:00 97.6 F 05/19/20 02:30 98.6 F 100 Weight Weight 174 lb 2.643 oz Most Recent Monitor Data Heart Rate from ECG 59 NIBP 147/81 NIBP BP-Mean 103 Respiration from ECG 16 SpO2 100 I&O: 05/18/20 05/19/20 05/20/20 06:59 06:59 06:59 Intake Total 117 Output Total 300 200 Balance -183 -200 Result Diagrams: 05/19/20 02:22 05/19/20 02:22 - Exam Eye: PERRL Heart: RRR, no murmur, no gallops, no rubs Respiratory: CTAB, no wheezes, no rales, no ronchi, normal chest expansion, no tachypnea Gastrointestinal: soft, non-tender, non-distended, normal bowel sounds, no palpable masses Extremities: no cyanosis, no edema Hosp A/P (1) NSTEMI (non-ST elevated myocardial infarction) Code(s): I21.4 - NON-ST ELEVATION (NSTEMI) MYOCARDIAL INFARCTION Status: Acute (2) DM2 (diabetes mellitus, type 2) Status: Chronic (3) Dyslipidemia Code(s): E78.5 - HYPERLIPIDEMIA, UNSPECIFIED Status: Chronic (4) HTN (hypertension) Code(s): I10 - ESSENTIAL (PRIMARY) HYPERTENSION Status: Chronic - Plan * NSTEMI- discussed with Dr. Wong. Will treat this medically. Will add Ranexa, and continue Xarelt ( low dose ) * Amiodarone will be discontinued due to the risk of prolonged Qt * Continue Carvediolol, and Lipitor * Wean Nitro drip as tolerated * HTN- blood pressure is stable * DM- blood glucose is a bit elevated- will re-start Metformin and his home dose of insulin, and continue SSI *
[2020-05-19] MEDS: Multivitamin W/ Minerals 1 TAB PO SCH (09:57)
[2020-05-19] MEDS: Ubidecarenone 50 MG CAP PO SCH (09:57)
[2020-05-19] MEDS: Atorvastatin Calcium 10 MG TAB PO SCH (09:58)
[2020-05-19] MEDS: Tamsulosin HCl 0.4 MG CAP PO SCH (09:58)
[2020-05-19] MEDS: Gemfibrozil 600 MG TAB PO SCH ×2 (10:08→20:21)
[2020-05-19] MEDS: Cholecalciferol 1,000 UNITS (25 MCG) TAB PO SCH (10:08)
[2020-05-19] MEDS: Magnesium Oxide 400 MG TAB PO SCH ×2 (10:08→20:21)
[2020-05-19] MEDS: Carvedilol 3.125 MG TAB PO SCH ×2 (10:08→20:33)
[2020-05-19] MEDS: Apixaban 2.5 MG TAB PO SCH ×2 (10:08→20:21)
[2020-05-19] MEDS: Lorazepam 0.5 MG TAB PO PRN ×2 (10:08→17:54)
[2020-05-19] MEDS: Colchicine 0.6 MG TAB PO SCH (10:09)
[2020-05-19 12:21] VITALS: BMI 26.0
[2020-05-19 13:56] LABS: Troponin I 5.179 ng/mL (< 0.028)
[2020-05-19] MEDS: HumaLOG 300 UNITS/3 ML VIAL SC PRN ×2 (17:35→20:21)
[2020-05-19] MEDS: Insulin Glargine 30 UNITS in Pre-Filled Syringe 1 EACH SC SCH (20:20)
[2020-05-19] MEDS: metFORMIN 500 MG TAB PO SCH (20:31)
[2020-05-20] MEDS ORDERED: Communication Order-Pharmacy FS SCH (00:15)
[2020-05-20 04:29] LABS: Troponin I 6.595 ng/mL (< 0.028)
[2020-05-20] MEDS: Losartan 25 MG TAB PO SCH (09:21)
[2020-05-20] MEDS: Apixaban 2.5 MG TAB PO SCH ×2 (09:22→20:20)
[2020-05-20] MEDS: Carvedilol 3.125 MG TAB PO SCH ×2 (09:22→20:19)
[2020-05-20] MEDS: Aspirin Chewable 81 MG TAB PO SCH (09:22)
[2020-05-20] MEDS: Cholecalciferol 1,000 UNITS (25 MCG) TAB PO SCH (09:23)
[2020-05-20] MEDS: Gemfibrozil 600 MG TAB PO SCH ×2 (09:23→20:20)
[2020-05-20] MEDS: Atorvastatin Calcium 10 MG TAB PO SCH (09:23)
[2020-05-20] MEDS: Colchicine 0.6 MG TAB PO SCH (09:24)
[2020-05-20] MEDS: Insulin Glargine 13 UNITS in Pre-Filled Syringe 1 EACH SC SCH (09:25)
[2020-05-20] MEDS: metFORMIN 500 MG TAB PO SCH ×2 (09:26→20:27)
[2020-05-20] MEDS: Magnesium Oxide 400 MG TAB PO SCH ×2 (09:26→20:20)
[2020-05-20] MEDS: Multivitamin W/ Minerals 1 TAB PO SCH (09:27)
[2020-05-20] MEDS: Tamsulosin HCl 0.4 MG CAP PO SCH (09:32)
[2020-05-20] MEDS: Ubidecarenone 50 MG CAP PO SCH (09:38)
--- NOTE | 2020-05-20 09:41 | PRG ---
DATE OF SERVICE: 05/20/2020 SUBJECTIVE: The patient is doing well. He is having no shoulder pain at the current time. going to undergo cardiac catheterization later today. OBJECTIVE: VITAL SIGNS: Temperature 97.9, pulse 60, blood pressure 120/71, and O2 sat 100%. HEENT: Unremarkable. NECK: No JVD. CHEST: Clear. CARDIAC: S1 and S2. Regular. ABDOMEN: Soft. EXTREMITIES: No edema. ASSESSMENT: 1. Angina. 2. Status post bypass surgery. 3. Non-Q-wave myocardial infarction. PLAN: Cardiac catheterization today. Further disposition to follow. Job ID: [id number]
[2020-05-20] MEDS ORDERED: Iopamidol 370 76% 100 ML VIAL ONE (10:04)
--- NOTE | 2020-05-20 14:11 | PDOC.HOSPP ---
- Subjective Encounter Date: 05/20/20 Subjective: pt seen and examined he reports feeling much better no chest pain or sob fever or chill going for cardiac cath today - Objective Vital Signs & Weight: Vital Signs (12 hours) Temp 05/20/20 14:00 98 F 05/20/20 11:00 98.0 F 05/20/20 04:00 97.9 F Weight Admit Weight 187 lb Weight 187 lb Most Recent Monitor Data Heart Rate from ECG 56 NIBP 177/118 NIBP BP-Mean 137 Respiration from ECG 16 SpO2 100 I&O: 05/19/20 05/20/20 05/21/20 06:59 06:59 06:59 Intake Total 117 1452.2 0 Output Total 300 3050 0 Balance -183 -1597.8 0 Result Diagrams: 05/19/20 02:22 05/19/20 02:22 Additional Labs: Accuchecks 05/19/20 05/19/20 05/19/20 20:24 17:32 10:23 POC Glucose 204 H 167 H 141 H Hospitalist ROS - Medication Medications: Active Medications Generic Name Dose Route Start Last Admin Trade Name Isac PRN Reason Stop Dose Admin Apixaban 2.5 mg 05/19/20 09:00 05/20/20 09:22 Eliquis PO Not Given BID [facility] Aspirin 81 mg 05/20/20 09:00 05/20/20 09:22 Aspirin Chewable PO 81 mg DAILY ROGELIO Administration Atorvastatin Calcium 10 mg 05/19/20 09:00 05/20/20 09:23 Lipitor PO 10 mg DAILY [facility] Administration Carvedilol 3.125 mg 05/19/20 08:00 05/20/20 09:22 Coreg PO 3.125 mg [facility] Administration Cholecalciferol 1,000 units 05/19/20 09:00 05/20/20 09:23 Vitamin D3 PO Not Given DAILY [facility] Coenzyme Q10 100 mg 05/19/20 09:00 05/20/20 09:38 Coenzyme Q10 PO Not Given DAILY [facility] Colchicine 0.6 mg 05/19/20 09:00 05/20/20 09:24 Colchicine PO Not Given DAILY [facility] Gemfibrozil 600 mg 05/19/20 09:00 05/20/20 09:23 Lopid PO 600 mg BID [facility] Administration Nitroglycerin/Dextrose 250 mls @ 0 mls/hr 05/19/20 02:00 05/19/20 17:55 Nitroglycerin 50 Mg/250 Ml Bot IVPB 250 mls INF ROGELIO Administration Protocol Titrate Insulin Glargine 13 units/ 0.13 mls @ 0 mls/hr 05/20/20 09:00 05/20/20 09:25 Miscellaneous Medication SC Not Given QAM ROGELIO Insulin Glargine 30 units/ 0.3 mls @ 0 mls/hr 05/19/20 21:00 05/19/20 20:20 Miscellaneous Medication SC 0.3 mls HS ROGELIO Administration Insulin Human Lispro 0 units 05/19/20 02:00 05/19/20 20:21 Humalog SC 4 unit .MODERATE SLIDING SC PRN Administration Moderate Correctional Scale Iron/Minerals/Multivitamins 1 tab 05/19/20 09:00 05/20/20 09:27 Theragran M PO 1 tab DAILY ROGELIO Administration Isosorbide Mononitrate 30 mg 05/19/20 09:00 05/20/20 09:26 Imdur Er PO 30 mg DAILY ROG[facility]IO Administration Lorazepam 0.5 mg 05/19/20 01:59 05/19/20 17:54 Ativan PO 0.5 mg Q8H PRN Administration Anxiety Losartan Potassium 100 mg 05/19/20 09:00 05/20/20 09:21 Cozaar PO 100 mg DAILY ROGELIO Administration Magnesium Oxide 400 mg 05/19/20 09:00 05/20/20 09:26 Magnesium Oxide PO 400 mg BID ROGELIO Administration Metformin HCl 500 mg 05/19/20 21:00 05/20/20 09:26 Glucophage PO Not Given BID ROG[facility]IO Pantoprazole Sodium 40 mg 05/19/20 09:00 05/20/20 09:32 Protonix PO 40 mg DAILY ROGELIO Administration Ranolazine 500 mg 05/19/20 21:00 05/20/20 09:38 Ranexa PO Not Given BID [facility] Sertraline HCl 50 mg 05/19/20 09:00 05/20/20 09:32 Zoloft PO 50 mg DAILY [facility]OG[facility]IO Administration Tamsulosin HCl 0.4 mg 05/19/20 09:00 05/20/20 09:32 Flomax PO 0.4 mg DAILY ROGELIO Administration - Exam General Appearance: NAD, awake alert Eye: PERRL ENT: normocephalic atraumatic Neck: supple Heart: RRR Respiratory: CTAB Gastrointestinal: soft Hosp A/P (1) NSTEMI (non-ST elevated myocardial infarction) Code(s): I21.4 - NON-ST ELEVATION (NSTEMI) MYOCARDIAL INFARCTION Status: Acute (2) DM2 (diabetes mellitus, type 2) Status: Chronic (3) Dyslipidemia Code(s): E78.5 - HYPERLIPIDEMIA, UNSPECIFIED Status: Chronic (4) HTN (hypertension) Code(s): I10 - ESSENTIAL (PRIMARY) HYPERTENSION Status: Chronic - Plan NSTEMI- appreciat cardiology input , pt is going for cardiac cath today will f/ u results and further cardio recs * Continue Carvediolol, and Lipitor * Wean Nitro drip as tolerated * HTN- blood pressure is stable * DM- blood glucose is a bit elevated- will re-start Metformin and his home dose of insulin, and continue SSI * moniotr labs * dvt ppx * pt full code * possible dc tomorrow based on cath results
[2020-05-20] MEDS ORDERED: Sodium Chloride 0.9% 200 ML IV PRN (14:12)
[2020-05-20] MEDS ORDERED: Nitroglycerin 0.4 MG TAB (25 Tab Bottle) SL PRN (14:12)
[2020-05-20] MEDS ORDERED: Acetaminophen/Codeine 30-300mg Tablet PO PRN ×2 (14:12)
[2020-05-20 15:22] LABS: #Eosinphils 0.6 thou/uL (0.0-0.7); #Lymphocytes 3.1 thou/uL (1.20-3.40); #Neutrophils 7.4 thou/uL (1.40-6.50); %Basophils 0.3 % (0.0-1.0); %Eosinophils 4.6 % (0.0-10.0); %Lymphocytes 25.7 % (21.0-51.0); %Monocytes 8.4 % (0.0-10.0); Hemoglobin 12.1 g/dL (14.0-18.0); Mean Corpuscular HGB CONC 32.5 g/dL (32.0-36.0); Mean Corpuscular Hemoglobin 27.8 pg (27.0-31.0); Mean Corpuscular Volume 85.5 fL (78.0-98.0); Mean Platelet Volume 9.7 fL (7.4-10.4); Platelet Count 284 thou/uL (130-400); RBC Distribution Width 15.2 % (11.5-14.5); Red Blood Cell (RBC) Count 4.36 mill/uL (4.70-6.10); White Blood Cell (WBC) Count 12.2 thou/uL (4.8-10.8)
[2020-05-20 15:40] LABS: Anion Gap 14 mmol/L (10-20); BUN (Urea Nitrogen) 17 mg/dL (8.4-25.7); Calc. Creatinine Clearance 73 mL/min (70-130); Calcium 9.2 mg/dL (7.8-10.44); Carbon Dioxide 22 mmol/L (23-31); Chloride 106 mmol/L (98-107); Estimated GFR-MDRD 72; Glucose 150 mg/dL (83-110); Sodium 137 mmol/L (136-145)
[2020-05-20] MEDS: Insulin Glargine 30 UNITS in Pre-Filled Syringe 1 EACH SC SCH (20:07)
[2020-05-21 03:32] LABS: #Basophils 0.1 thou/uL (0.0-0.2); #Eosinphils 0.7 thou/uL (0.0-0.7); #Lymphocytes 3.4 thou/uL (1.20-3.40); #Neutrophils 5.4 thou/uL (1.40-6.50); %Basophils 0.8 % (0.0-1.0); %Eosinophils 6.5 % (0.0-10.0); %Monocytes 9.6 % (0.0-10.0); %Neutrophils 51.1 % (42.0-75.0); Hemoglobin 12.4 g/dL (14.0-18.0); Mean Corpuscular HGB CONC 33.1 g/dL (32.0-36.0); Mean Corpuscular Hemoglobin 28.1 pg (27.0-31.0); Mean Corpuscular Volume 84.8 fL (78.0-98.0); Mean Platelet Volume 9.7 fL (7.4-10.4); Platelet Count 299 thou/uL (130-400); RBC Distribution Width 15.3 % (11.5-14.5); White Blood Cell (WBC) Count 10.5 thou/uL (4.8-10.8)
[2020-05-21 07:03] LABS: Anion Gap 12 mmol/L (10-20); BUN (Urea Nitrogen) 16 mg/dL (8.4-25.7); Calc. Creatinine Clearance 70 mL/min (70-130); Calcium 9.7 mg/dL (7.8-10.44); Carbon Dioxide 28 mmol/L (23-31); Chloride 106 mmol/L (98-107); Estimated GFR-MDRD 68; Glucose 147 mg/dL (83-110); Magnesium 1.9 mg/dL (1.6-2.6); Potassium 4.8 mmol/L (3.5-5.1); Sodium 141 mmol/L (136-145)
[2020-05-21] MEDS: Losartan 25 MG TAB PO SCH (07:56)
[2020-05-21] MEDS: Atorvastatin Calcium 10 MG TAB PO SCH (07:56)
[2020-05-21] MEDS: Ubidecarenone 50 MG CAP PO SCH (07:57)
[2020-05-21] MEDS: Cholecalciferol 1,000 UNITS (25 MCG) TAB PO SCH (07:57)
[2020-05-21] MEDS: Magnesium Oxide 400 MG TAB PO SCH ×2 (07:57→20:48)
[2020-05-21] MEDS: Multivitamin W/ Minerals 1 TAB PO SCH (07:57)
[2020-05-21] MEDS: Gemfibrozil 600 MG TAB PO SCH ×2 (07:57→20:48)
[2020-05-21] MEDS: Apixaban 2.5 MG TAB PO SCH (07:58)
[2020-05-21] MEDS: metFORMIN 500 MG TAB PO SCH ×2 (07:58→22:18)
[2020-05-21] MEDS: Lorazepam 0.5 MG TAB PO PRN (07:58)
[2020-05-21] MEDS: Carvedilol 3.125 MG TAB PO SCH ×2 (07:58→20:46)
[2020-05-21] MEDS: Tamsulosin HCl 0.4 MG CAP PO SCH (07:58)
[2020-05-21] MEDS: Aspirin Chewable 81 MG TAB PO SCH (07:59)
[2020-05-21] MEDS: Colchicine 0.6 MG TAB PO SCH (07:59)
[2020-05-21] MEDS: Insulin Glargine 13 UNITS in Pre-Filled Syringe 1 EACH SC SCH (08:42)
[2020-05-21] MEDS: HumaLOG 300 UNITS/3 ML VIAL SC PRN ×2 (12:49→18:09)
--- NOTE | 2020-05-21 12:57 | PDOC.HOSPP ---
- Subjective Encounter Date: 05/21/20 - Objective Vital Signs & Weight: Vital Signs (12 hours) Temp Pulse Resp BP Pulse Ox 05/21/20 12:15 98.1 F 60 17 151/80 H 98 05/21/20 08:00 100 05/21/20 07:00 97.7 F 05/21/20 04:00 98.4 F Weight Admit Weight 187 lb Weight 187 lb Most Recent Monitor Data Heart Rate from ECG 65 NIBP 164/98 NIBP BP-Mean 120 Respiration from ECG 17 SpO2 99 I&O: 05/20/20 05/21/20 05/22/20 06:59 06:59 06:59 Intake Total 1452.2 1993.9 372 Output Total 3050 1850 200 Balance -1597.8 143.9 172 Result Diagrams: 05/21/20 03:10 05/21/20 06:09 Additional Labs: Accuchecks 05/21/20 05/21/20 05/20/20 12:16 04:57 04:04 POC Glucose 281 H 130 H 152 H Hospitalist ROS - Medication Medications: Active Medications Generic Name Dose Route Start Last Admin Trade Name Freq PRN Reason Stop Dose Admin Acetaminophen/Codeine Phosphate 1 tab 05/20/20 14:12 05/21/20 08:44 Tylenol #3 PO 1 tab Q4H PRN Administration Mild Pain (1-3) Apixaban 2.5 mg 05/19/20 09:00 05/21/20 07:58 Eliquis PO 2.5 mg BID ROGELIO Administration Aspirin 81 mg 05/20/20 09:00 05/21/20 07:59 Aspirin Chewable PO 81 mg DAILY ROGELIO Administration Atorvastatin Calcium 10 mg 05/19/20 09:00 05/21/20 07:56 Lipitor PO 10 mg DAILY ROGELIO Administration Carvedilol 3.125 mg 05/19/20 08:00 05/21/20 07:58 Coreg PO 3.125 mg [facility] Administration Cholecalciferol 1,000 units 05/19/20 09:00 05/21/20 07:57 Vitamin D3 PO 1,000 mcg DAILY ROGELIO Administration Coenzyme Q10 100 mg 05/19/20 09:00 05/21/20 07:57 Coenzyme Q10 PO 100 mg DAILY [facility]OGELIO Administration Colchicine 0.6 mg 05/19/20 09:00 05/21/20 07:59 Colchicine PO 0.6 mg DAILY [facility]OG[facility]IO Administration Gemfibrozil 600 mg 05/19/20 09:00 05/21/20 07:57 Lopid PO 600 mg BID ROGELIO Administration Nitroglycerin/Dextrose 250 mls @ 0 mls/hr 05/19/20 02:00 05/19/20 17:55 Nitroglycerin 50 Mg/250 Ml Bot IVPB 250 mls INF ROGELIO Administration Protocol Titrate Insulin Glargine 13 units/ 0.13 mls @ 0 mls/hr 05/20/20 09:00 05/21/20 08:42 Miscellaneous Medication SC 0.13 mls QAM ROGELIO Administration Insulin Glargine 30 units/ 0.3 mls @ 0 mls/hr 05/19/20 21:00 05/20/20 20:07 Miscellaneous Medication SC 0.3 mls HS ROGELIO Administration Insulin Human Lispro 0 units 05/19/20 02:00 05/19/20 20:21 Humalog SC 4 unit .MODERATE SLIDING SC PRN Administration Moderate Correctional Scale Iron/Minerals/Multivitamins 1 tab 05/19/20 09:00 05/21/20 07:57 Theragran M PO 1 tab DAILY ROGELIO Administration Isosorbide Mononitrate 30 mg 05/19/20 09:00 05/21/20 07:59 Imdur Er PO 30 mg DAILY [facility]OG[facility]IO Administration Lorazepam 0.5 mg 05/19/20 01:59 05/21/20 07:58 Ativan PO 0.5 mg Q8H PRN Administration Anxiety Losartan Potassium 100 mg 05/19/20 09:00 05/21/20 07:56 Cozaar PO 100 mg DAILY ROGELIO Administration Magnesium Oxide 400 mg 05/19/20 09:00 05/21/20 07:57 Magnesium Oxide PO 400 mg BID ROGELIO Administration Metformin HCl 500 mg 05/19/20 21:00 05/21/20 07:58 Glucophage PO 500 mg BID ROGELIO Administration Metoprolol Tartrate 5 mg 05/19/20 02:01 05/21/20 08:42 Lopressor IVP 5 mg Q6H PRN Administration SBP > 140 Pantoprazole Sodium 40 mg 05/19/20 09:00 05/21/20 07:58 Protonix PO 40 mg DAILY ROGELIO Administration Ranolazine 500 mg 05/19/20 21:00 05/21/20 07:57 Ranexa PO 500 mg BID ROGELIO Administration Sertraline HCl 50 mg 05/19/20 09:00 05/21/20 07:57 Zoloft PO 50 mg DAILY [facility]OG[facility]IO Administration Tamsulosin HCl 0.4 mg 05/19/20 09:00 05/21/20 07:58 Flomax PO 0.4 mg DAILY ROGELIO Administration - Exam General Appearance: NAD Eye: PERRL ENT: normocephalic atraumatic Neck: supple Heart: RRR Respiratory: CTAB Gastrointestinal: soft Extremities: no cyanosis Skin: normal turgor Musculoskeletal: normal tone Hosp A/P (1) NSTEMI (non-ST elevated myocardial infarction) Code(s): I21.4 - NON-ST ELEVATION (NSTEMI) MYOCARDIAL INFARCTION Status: Acute (2) DM2 (diabetes mellitus, type 2) Status: Chronic (3) Dyslipidemia Code(s): E78.5 - HYPERLIPIDEMIA, UNSPECIFIED Status: Chronic (4) HTN (hypertension) Code(s): I10 - ESSENTIAL (PRIMARY) HYPERTENSION Status: Chronic - Plan NSTEMI- appreciat cardiology input , status post cardiac catheterization yesterday tolerated procedure well will follow further cardiology recommendations meanwhile continue at medical management * Continue Carvediolol, and Lipitor * HTN- blood pressure is stable * DM- blood glucose is a bit elevated- will re-start Metformin and his home dose of insulin, and continue SSI * moniotr labs * dvt ppx * pt full code * possible dc tomorrow based on cath results
--- NOTE | 2020-05-21 13:21 | PDOC.CPN ---
- Subjective Date: 05/21/20 Time: 14:14 Interval history: The pt seen and examined. No overnight events. No cardiac complaints. He just lost his early this AM - Objective Allergies/Adverse Reactions: Allergies Allergy/AdvReac Type Severity Reaction Status Date / Time Penicillins Allergy Unknown Verified 05/19/20 03:52 simvastatin Allergy Unknown Verified 05/19/20 03:52 Visit Medications: Current Medications Acetaminophen/Codeine Phosphate (Tylenol #3) 1 tab PO Q4H PRN PRN Reason: Mild Pain (1-3) Last Admin: 05/21/20 08:44 Dose: 1 tab Acetaminophen/Codeine Phosphate (Tylenol #3) 2 tab PO Q4H PRN PRN Reason: Moderate Pain (4-6) Apixaban (Eliquis) 2.5 mg PO BID [facility] Last Admin: 05/21/20 07:58 Dose: 2.5 mg Aspirin (Aspirin Chewable) 81 mg PO DAILY [facility] Last Admin: 05/21/20 07:59 Dose: 81 mg Atorvastatin Calcium (Lipitor) 10 mg PO DAILY [facility] Last Admin: 05/21/20 07:56 Dose: 10 mg Carvedilol (Coreg) 3.125 mg PO 799,[id number] [facility] Last Admin: 05/21/20 07:58 Dose: 3.125 mg Cholecalciferol (Vitamin D3) 1,000 units PO DAILY [facility] Last Admin: 05/21/20 07:57 Dose: 1,000 mcg Coenzyme Q10 (Coenzyme Q10) 100 mg PO DAILY [facility] Last Admin: 05/21/20 07:57 Dose: 100 mg Colchicine (Colchicine) 0.6 mg PO DAILY [facility] Last Admin: 05/21/20 07:59 Dose: 0.6 mg Dextrose/Water (Dextrose 50%) 25 gm SLOW IVP PRN PRN PRN Reason: Hypoglycemia Gemfibrozil (Lopid) 600 mg PO BID [facility] Last Admin: 05/21/20 07:57 Dose: 600 mg Glucagon (Glucagon) 1 mg IM PRN PRN PRN Reason: Hypoglycemia Dextrose/Water (D5w) 1,000 mls @ 0 mls/hr IV .Q0M PRN PRN Reason: Hypoglycemia Nitroglycerin/Dextrose (Nitroglycerin 50 Mg/250 Ml Bot) 250 mls @ 0 mls/hr IVPB INF [facility]; Protocol Last Admin: 05/19/20 17:55 Dose: 250 mls Insulin Glargine 13 units/ (Miscellaneous Medication) 0.13 mls @ 0 mls/hr SC QAM [facility] Last Admin: 05/21/20 08:42 Dose: 0.13 mls Insulin Glargine 30 units/ (Miscellaneous Medication) 0.3 mls @ 0 mls/hr SC HS [facility] Last Admin: 05/20/20 20:07 Dose: 0.3 mls Sodium Chloride (Normal Saline 0.9%) 200 mls @ 0 mls/hr IV ONE PRN PRN Reason: SBP < 90 Stop: 05/21/20 14:13 Insulin Human Lispro (Humalog) 0 units SC .MODERATE SLIDING SC PRN PRN Reason: Moderate Correctional Scale Last Admin: 05/21/20 12:49 Dose: 6 unit Iron/Minerals/Multivitamins (Theragran M) 1 tab PO DAILY [facility] Last Admin: 05/21/20 07:57 Dose: 1 tab Isosorbide Mononitrate (Imdur Er) 30 mg PO DAILY [facility] Last Admin: 05/21/20 07:59 Dose: 30 mg Lorazepam (Ativan) 0.5 mg PO Q8H PRN PRN Reason: Anxiety Last Admin: 05/21/20 07:58 Dose: 0.5 mg Losartan Potassium (Cozaar) 100 mg PO DAILY [facility] Last Admin: 05/21/20 07:56 Dose: 100 mg Magnesium Oxide (Magnesium Oxide) 400 mg PO BID [facility] Last Admin: 05/21/20 07:57 Dose: 400 mg Metformin HCl (Glucophage) 500 mg PO BID [facility] Last Admin: 05/21/20 07:58 Dose: 500 mg Metoprolol Tartrate (Lopressor) 5 mg IVP Q6H PRN PRN Reason: SBP > 140 Last Admin: 05/21/20 08:42 Dose: 5 mg Morphine Sulfate (Morphine) 4 mg SLOW IVP Q4H PRN PRN Reason: Pain Nitroglycerin (Nitrostat) 0.4 mg SL Q5MIN PRN PRN Reason: Chest Pain Pantoprazole Sodium (Protonix) 40 mg PO DAILY [facility] Last Admin: 05/21/20 07:58 Dose: 40 mg Ranolazine (Ranexa) 500 mg PO BID [facility] Last Admin: 05/21/20 07:57 Dose: 500 mg Sertraline HCl (Zoloft) 50 mg PO DAILY [facility] Last Admin: 05/21/20 07:57 Dose: 50 mg Tamsulosin HCl (Flomax) 0.4 mg PO DAILY [facility] Last Admin: 05/21/20 07:58 Dose: 0.4 mg Vital Signs & Weight: Vital Signs Temp Pulse Resp BP Pulse Ox 05/21/20 12:15 98.1 F 60 17 151/80 H 98 05/21/20 08:00 100 05/21/20 07:00 97.7 F 05/21/20 04:00 98.4 F Admit Weight 187 lb Weight 187 lb - Physical Exam General: alert & oriented x3 HEENT: mucus membranes moist Neck: supple neck Cardiac: regular rate and rhythm, S1/S2 Lungs: decreased breath sounds Neuro: cranial nerve 2-12 intact Extremities: no edema - Labs Result Diagrams: 05/21/20 03:10 05/21/20 06:09 Troponin/CKMB CK-MB (CK-2) 1.8 ng/mL (0-6.6) 05/18/20 23:29 Troponin I 6.595 ng/mL (< 0.028) H* 05/20/20 03:19 - Telemetry Sinus rhythms and dysrhythmias: sinus rhythm - Assessment/Plan Assessment/Plan: 1. NSTEMI with s/p LHC on 05/19/2020 with most likely 100% stenosis in SVG-diag ; 3 other graft are patent; akinetic apex, and EF 50%; Eliquis 2.5mg BID was changed to Xarelto 20mg qd for hx of Parox Aflutter/afib and CAD management 2. CAD with hx of CABG in 02/2020 3. 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 HTN - stable 5. DM type 2 6. CKD - WNL 7. HLD - on Statin MAR reviewed * Most likely the pt will be d/c home tomorrow after he has Cardiac rehab eval. Pt. seen and eval. by me. He denies any further chest pain. Susoect he closed the SVG to the diag. branch. This was not located at [facility]. since he is doi g better if he is able to walk and assistance at home has beed arranged, he could go home today. He should f/u with dr. Dany Wong next week or so. Exam: chest clear. RRR. *
--- NOTE | 2020-05-21 15:31 | PDOC.FMACP ---
Advance Care Planning - Problem (1) Palliative care encounter Status: Acute Code(s): Z51.5 - ENCOUNTER FOR PALLIATIVE CARE (2) DM2 (diabetes mellitus, type 2) Status: Chronic (3) HTN (hypertension) Status: Chronic Code(s): I10 - ESSENTIAL (PRIMARY) HYPERTENSION (4) NSTEMI (non-ST elevated myocardial infarction) Status: Acute Code(s): I21.4 - NON-ST ELEVATION (NSTEMI) MYOCARDIAL INFARCTION - Note Participants: patient, palliative care Summary: Advanced Care Planning was discussed Mr Posey allowed an opportunity to decline. The diagnosis, prognosis and goals of care were discussed. Appropriate forms and documentation to accomplish the goals of care were discussed. All questions were answered. He has elected to complete a MPOA, [place] with Palliative Care assisted. He designated his niece and sister. Should Mr Posey decide to complete Directive to Physicians we will further assist. Please refer to Palliative Care notes also under ote section. Time Spent (mins): 20
[2020-05-21] MEDS ORDERED: Rivaroxaban 10 MG TAB PO SCH (17:00)
[2020-05-21] MEDS: Insulin Glargine 30 UNITS in Pre-Filled Syringe 1 EACH SC SCH (21:59)
[2020-05-22] MEDS: HumaLOG 300 UNITS/3 ML VIAL SC PRN ×2 (06:27→11:39)
[2020-05-22] MEDS: Losartan 25 MG TAB PO SCH (09:49)
[2020-05-22] MEDS: Multivitamin W/ Minerals 1 TAB PO SCH (09:50)
[2020-05-22] MEDS: Carvedilol 3.125 MG TAB PO SCH (09:50)
[2020-05-22] MEDS: Atorvastatin Calcium 10 MG TAB PO SCH (09:50)
[2020-05-22] MEDS: metFORMIN 500 MG TAB PO SCH (09:50)
[2020-05-22] MEDS: Gemfibrozil 600 MG TAB PO SCH (09:51)
[2020-05-22] MEDS: Aspirin Chewable 81 MG TAB PO SCH (09:51)
[2020-05-22] MEDS: Colchicine 0.6 MG TAB PO SCH (09:51)
[2020-05-22] MEDS: Ubidecarenone 50 MG CAP PO SCH (09:51)
[2020-05-22] MEDS: Cholecalciferol 1,000 UNITS (25 MCG) TAB PO SCH (09:51)
[2020-05-22] MEDS: Tamsulosin HCl 0.4 MG CAP PO SCH (09:51)
[2020-05-22] MEDS: Magnesium Oxide 400 MG TAB PO SCH (09:51)
[2020-05-22] MEDS: Insulin Glargine 13 UNITS in Pre-Filled Syringe 1 EACH SC SCH (09:54)
[2020-05-22 11:11] VITALS: BP 156/80; TEMP 97.8
--- NOTE | 2020-05-22 14:37 | PDOC.CPN ---
- Subjective Date: 05/22/20 Time: 09:39 Interval history: The pt seen and examined. No overnight events. No cardiac complaints. - Objective Allergies/Adverse Reactions: Allergies Allergy/AdvReac Type Severity Reaction Status Date / Time Penicillins Allergy Unknown Verified 05/19/20 03:52 simvastatin Allergy Unknown Verified 05/19/20 03:52 Vital Signs & Weight: Vital Signs Temp Pulse Pulse Pulse Resp BP BP 05/22/20 11:02 68 68 167/77 H 199/97 H 05/22/20 08:45 97.8 F 68 18 05/22/20 08:30 05/22/20 04:54 98.5 F 68 17 BP Pulse Ox 05/22/20 11:02 05/22/20 08:45 156/80 H 99 05/22/20 08:30 99 05/22/20 04:54 143/73 H 95 Admit Weight 187 lb Weight 187 lb - Physical Exam General: alert & oriented x3 HEENT: mucus membranes moist Neck: supple neck Cardiac: regular rate and rhythm, S1/S2 Lungs: decreased breath sounds Extremities: no edema - Labs Result Diagrams: 05/21/20 03:10 05/21/20 06:09 Troponin/CKMB CK-MB (CK-2) 1.8 ng/mL (0-6.6) 05/18/20 23:29 Troponin I 6.595 ng/mL (< 0.028) H* 05/20/20 03:19 - Telemetry Sinus rhythms and dysrhythmias: sinus rhythm - Assessment/Plan Assessment/Plan: 1. NSTEMI with s/p LHC on 05/19/2020 with most likely 100% stenosis in SVG-diag ; 3 other graft are patent; akinetic apex, and EF 50%; Eliquis 2.5mg BID was changed to Xarelto 20mg qd for hx of Parox Aflutter/afib and CAD management 2. CAD with hx of CABG in 02/2020 3. 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 HTN - stable 5. DM type 2 6. CKD - WNL 7. HLD - on Statin MAR reviewed * From Cardiac standpoint, the pt is stable to d/c home * The will f/u with dr. Dany Wong next week or so.
--- NOTE | 2020-05-24 06:56 | PQF ---
CLINICAL DOCUMENTATION CLARIFICATION FORM: Dear : Aislinn Wong Date / Time: 05/24/2020 06:54 Please exercise your independent, professional judgment in responding to the clarification form. Clinical indicators are provided on the bottom of this form for your review Please check appropriate box(es): AMI TYPE: [ ] Type 1 HI (NSTEMI) [ ] Type 2 HI (T2MI) secondary to: [ ] hypertension [ ] arrhythmia [ ] CAD with angina [ ] Other (please specify) [ ] Type 4-5 HI (HI with PCI/PCI stent thrombosis, PCI re-stenosis or CABG related HI) [ ] Other diagnosis [ ] Unable to determine Physician Signature: Date/Time: For continuity of documentation, please document condition throughout progress notes and discharge summary. Thank You. To be completed by CDI/Coding staff for physician review: Present Clinical Indicators - Signs / Symptoms / Labs Results and Location in Medical Record [x] Non Q wave Myocardial infarction Consult 05/19 [x] bilateral shoulder pain ED Notes 05/18 [x] HTN emergency HP 05/19 [x] shoulder pain which seems to have been some type of anginal equivalent Consult 05/19 [x] angina PN 05/20 [x] most likely 100% stenosis in SVG PN 05/22 [x] 3 grafts was patent PN 05/22 [x] Vital Signs BP: 05/2124=327/80 05/2297=646/80 Vital Signs 05/21 [x] Labs Troponin: 05/18=0.099 05/19=5.179 05/20=6.595 Labs 05/18 Present Risk Factors Results and Location in Medical Record [x] DM ED Notes 05/18 [x] TIA ED Notes 05/18 [x] High Cholesterol ED Notes 05/18 [x] HTN ED Notes 05/18 [x] Afib ED Notes 05/18 [x] CKD Consult 05/19 [x] CAD PN 05/22 [x] HLD PN 05/22 [x] 79 years old male ED Notes 05/18 Present Treatments Results and Location in Medical Record [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
--- NOTE | 2020-05-30 17:17 | EKG ---
Test Reason : WEAKNESS Blood Pressure : / mmHG Vent. Rate : 060 BPM Atrial Rate : 060 BPM P-R Int : 198 ms QRS Dur : 110 ms QT Int : 460 ms P-R-T Axes : 026 -35 176 degrees QTc Int : 460 ms Normal sinus rhythm Left axis deviation Septal infarct , age undetermined T wave abnormality, consider inferior ischemia T wave abnormality, consider anterolateral ischemia Abnormal ECG Confirmed by NAT Shin, JAYCOB ([id number]), newspaper photo editor MICHAEL DONALD ([id number]) on 05/30/2020 5:16:56 PM Referred By: Confirmed By:JAYCOB JOHNS M.D.
== END 2020-05-22 11:58 | disposition home or self-care (01) | DRG 281 ==
LOC: ERS 22:56 → CCU 05-19 01:37 → 2NO 05-21 12:12
PROVIDERS: ADMIT Internal Medicine; ATTEND Internal Medicine
PROC: 4A023N7 Measurement of Cardiac Sampling and Pressure, Left Heart, Percutaneous Approach (ICD-10-PCS; principal; 2020-05-19)
PROC: B2111ZZ Fluoroscopy of Multiple Coronary Arteries using Low Osmolar Contrast (ICD-10-PCS; 2020-05-19)
PROC: B2121ZZ Fluoroscopy of Single Coronary Artery Bypass Graft using Low Osmolar Contrast (ICD-10-PCS; 2020-05-19)
PROC: B2181ZZ Fluoroscopy of Left Internal Mammary Bypass Graft using Low Osmolar Contrast (ICD-10-PCS; 2020-05-19)
PROC: B2151ZZ Fluoroscopy of Left Heart using Low Osmolar Contrast (ICD-10-PCS; 2020-05-19)
PROC: 4A033BC Measurement of Arterial Pressure, Coronary, Percutaneous Approach (ICD-10-PCS; 2020-05-19)
DX: I21.4 Non-ST elevation (NSTEMI) myocardial infarction (principal); I16.1 Hypertensive emergency; Z51.5 Encounter for palliative care; I48.0 Paroxysmal atrial fibrillation; E11.22 Type 2 diabetes mellitus with diabetic chronic kidney disease; E78.5 Hyperlipidemia, unspecified; I12.9 Hypertensive chronic kidney disease with stage 1 through stage 4 chronic kidney disease, or unspecified chronic kidney disease; N18.9 Chronic kidney disease, unspecified; I25.119 Atherosclerotic heart disease of native coronary artery with unspecified angina pectoris; Z95.1 Presence of aortocoronary bypass graft; Z86.73 Personal history of transient ischemic attack (TIA), and cerebral infarction without residual deficits; Z88.0 Allergy status to penicillin; Z88.8 Allergy status to other drugs, medicaments and biological substances; Z95.5 Presence of coronary angioplasty implant and graft; Z79.01 Long term (current) use of anticoagulants; Z79.82 Long term (current) use of aspirin; Z79.4 Long term (current) use of insulin; Z79.899 Other long term (current) drug therapy
CPT/HCPCS: 36415; 36416; 71045; 80048; 80053; 82553; 83735; 84484; 85025; 93005; 93459; 93567; 93798; 94760; 96365; 96366; J1644; J1815; Q9967

== ENCOUNTER 2020-05-22 14:48 | Observation (INO) | payer MEDICARE, BC ==
[2020-05-22 15:46] LABS: #Eosinphils 0.3 thou/uL (0.0-0.7); #Lymphocytes 1.6 thou/uL (1.20-3.40); #Monocytes 0.9 thou/uL (0.11-0.59); #Neutrophils 8.4 thou/uL (1.40-6.50); %Basophils 0.3 % (0.0-1.0); %Eosinophils 2.9 % (0.0-10.0); %Lymphocytes 14.4 % (21.0-51.0); %Monocytes 8.2 % (0.0-10.0); %Neutrophils 74.2 % (42.0-75.0); Hemoglobin 11.9 g/dL (14.0-18.0); Mean Corpuscular HGB CONC 33.1 g/dL (32.0-36.0); Mean Corpuscular Hemoglobin 28.3 pg (27.0-31.0); Mean Corpuscular Volume 85.4 fL (78.0-98.0); Mean Platelet Volume 9.5 fL (7.4-10.4); Platelet Count 273 thou/uL (130-400); RBC Distribution Width 15.1 % (11.5-14.5); White Blood Cell (WBC) Count 11.3 thou/uL (4.8-10.8)
[2020-05-22 16:14] LABS: ALT (SGPT) 17 U/L (8-55); AST (SGOT) 25 U/L (5-34); Albumin 3.7 g/dL (3.4-4.8); Alkaline Phosphatase 70 U/L (40-110); Anion Gap 15 mmol/L (10-20); BUN (Urea Nitrogen) 24 mg/dL (8.4-25.7); Bilirubin, Total 0.4 mg/dL (0.2-1.2); CK (CPK) 64 U/L (30-200); Calc. Creatinine Clearance 0 mL/min (70-130); Calcium 9.5 mg/dL (7.8-10.44); Carbon Dioxide 24 mmol/L (23-31); Chloride 105 mmol/L (98-107); Estimated GFR-MDRD 37; Globulin 2.9 g/dL (2.4-3.5); Glucose 170 mg/dL (83-110); Magnesium 1.9 mg/dL (1.6-2.6); Potassium 4.9 mmol/L (3.5-5.1); Protein, Total 6.6 g/dL (5.8-8.1); Sodium 139 mmol/L (136-145)
--- NOTE | 2020-05-22 16:23 | RAD ---
RADIOGRAPH CHEST 1 VIEW: 05/22/20 HISTORY: 79-year-old male status post syncope. Concern for aspiration. FINDINGS: There is no air space density, pulmonary edema, or pneumothorax. The lateral costophrenic angles are sharp. There is a moderately large midline retrocardiac opacity. There are sternotomy wires. Loop re [place] overlies the left lower chest. No interval change overall since 05/18/20. IMPRESSION: 1. No acute pulmonary findings. 2. Moderate to large hiatal hernia. rogelio posadas POS: JIN
[2020-05-22 16:40] LABS: CKMB 2.6 ng/mL (0-6.6)
[2020-05-22] MEDS ORDERED: Acetaminophen 325 MG TAB PO PRN (18:10)
[2020-05-22] MEDS ORDERED: Acetaminophen 650 MG Suppository PR PRN (18:10)
[2020-05-22 18:44] LABS: Lactic Acid 1.2 mmol/L (0.5-2.2)
--- NOTE | 2020-05-22 18:54 | PDOC.HOSPP ---
- Subjective Encounter Date: 05/22/20 Encounter Time: 17:35 Subjective: (Same day bounce back) PCP: Dr. Aiken CHIEF COMPLAINT: Lightheaded HPI: Patient discharged a earlier this afternoon following cardiac clearance after being admitted for an NSTEMI. He states after arriving home he became lightheaded and felt like he was going to faint. He states his niece caught him and lowered him to the ground. He was transferred back to the ED and per EMS the patient was complaining of generalized weakness. He was noted to have a slightly low BP of 105 systolic on arrival and noted to be orthostatic. Labs done revealed an ALBA. His troponin was elevated but trending down from recent days. He was given IV fluids in the ED and the patient states he felt much better. He states he did not have much to drink today except for a cup of coffee this morning. He believes he became unwell due to feeling very stressed and overwhelmed. His a couple of days ago and he is worried about arrangements that need to be made and the fact that she handled everything for him at home. He does have family support. Denies any chest pain or shortness of breath. Reports having constipation and last bowel movement was two days ago. Denies any n/v or abdominal pain. No abdominal distention. No urinary symptoms. No cough. All other review of systems negative. Feeling much stronger after fluids given. Of note patient s/p LHC on 05/19/2020 with 100% stenosis in SVG-diag; 3 other grafts patent, akinetic apex and EF of 50%. His anticoagulation was changed from Eliquis to Xarelto for hx of Aflutter/Afib and CAD management. Patient denies any head injury. No signs or symptoms of bleeding. PHYSICAL EXAM: General: Alert and Oriented, afebrile. Head: Normocephalic and atraumatic. Eyes: Extraocular muscles intact, Conjunctiva normal. ENT: Moist mucous membranes. Neck: Supple, no lymphadenopathy. Trachea midline, no jugular venous distention. Lungs: Clear bilaterally, no wheezes, rales or ronchi. Cardiac: RRR, heart sounds normal. Abdomen: Soft, nontender, nondistended, no guarding, no rigidity Extremities: No lower leg swelling or edema. Neuro: No neuro deficits on exam. Speech normal. Skin: Warm and dry. INVESTIGATIONS: EKG- NSR, HR 60. T wave inversions involving lateral leads. Labs- WCC 11.3, Hgb 11.9, Hct 35.9, platelets 273 Na+ 139, K+ 4.9, BUN 24, Creat 1.77, GFR 37. Glucose 170. Ca_ 9.5 LFTs normal. BNP 538.3, CKMB 2.6, Trop 2.672. - Objective Result Diagrams: 05/22/20 15:34 05/22/20 18:35 Hosp A/P (1) Lightheadedness Code(s): R42 - DIZZINESS AND GIDDINESS Status: Acute (2) Orthostasis Code(s): I95.1 - ORTHOSTATIC HYPOTENSION Status: Acute (3) ALBA (acute kidney injury) Code(s): N17.9 - ACUTE KIDNEY FAILURE, UNSPECIFIED Status: Acute (4) CAD (coronary artery disease) Code(s): I25.10 - ATHSCL HEART DISEASE OF [place] CORONARY ARTERY W/O ANG PCTRS Status: Chronic (5) DM2 (diabetes mellitus, type 2) Status: Chronic (6) Dyslipidemia Code(s): E78.5 - HYPERLIPIDEMIA, UNSPECIFIED Status: Chronic (7) HTN (hypertension) Code(s): I10 - ESSENTIAL (PRIMARY) HYPERTENSION Status: Chronic - Plan Cardiac monitoring. Continue to trend troponins. BNP elevated, given IV fluids in the ED. Continue gentle hydration. Add-on Mg+ and lactic acid. Monitor glucose, insulin sliding scale. Mild leukocytosis, no other symptoms/signs of infection. Afebrile. Monitor WCC. Obtain UA/UCx. Walking program consulted. Repeat Orthostatic BPs with AM vital signs to assess if orthostasis improves after hydration. DVT Prophylaxis with mechanical SCDs. Patient on chronic anticoagulation. Reconcile home meds once verified. CODE STATUS FULL
[2020-05-22 19:01] LABS: Glucose 164 mg/dL (83-110)
[2020-05-22 19:09] LABS: Critical Call Chem Troponin I RESULT DECREASING
[2020-05-22 22:04] VITALS: BMI 25.7
[2020-05-22 22:14] LABS: Critical Call Chem Troponin I RESULT DECREASING
[2020-05-22] MEDS ORDERED: Dextrose 5% in Water 1,000 ML IV PRN (22:32)
[2020-05-22] MEDS ORDERED: HumaLOG 300 UNITS/3 ML VIAL SC PRN ×2 (22:32)
[2020-05-22] MEDS ORDERED: Dextrose 50% Abboject 50 ML SYRINGE SLOW IVP PRN (22:32)
[2020-05-22 22:33] LABS: CKMB 2.6 ng/mL (0-6.6)
[2020-05-23 00:38] LABS: Bacteria/HPF None Seen HPF (None Seen); Bilirubin Negative (Negative); Blood, Urine Negative (Negative); Clarity Clear (Clear); Glucose, Urine (Dipstick) 100 mg/dL (Negative); Ketone, Urine Negative (Negative); Leukocyte Negative Leu/uL (Negative); Nitrite Negative (Negative); Protein, Urine (Dipstick) Negative (Neg-Trace); RBC/HPF 0-3 HPF (0-3); Specific Gravity, Urine 1.015 (1.002-1.036); Squamous Epithelial 0-3 HPF (0-3); Urobilinogen Normal mg/dL (Less than 2); WBC/HPF 0-3 HPF (0-3); pH, Urine 5.5 (5.0-9.0)
[2020-05-23 00:39] LABS: Urine Culture Reflex No No
[2020-05-23 05:02] LABS: #Basophils 0.1 thou/uL (0.0-0.2); #Eosinphils 0.7 thou/uL (0.0-0.7); #Lymphocytes 3.3 thou/uL (1.20-3.40); #Monocytes 1.1 thou/uL (0.11-0.59); #Neutrophils 5.7 thou/uL (1.40-6.50); %Basophils 0.6 % (0.0-1.0); %Eosinophils 6.3 % (0.0-10.0); %Lymphocytes 30.7 % (21.0-51.0); %Monocytes 9.8 % (0.0-10.0); %Neutrophils 52.6 % (42.0-75.0); Hemoglobin 10.6 g/dL (14.0-18.0); Mean Corpuscular HGB CONC 33.2 g/dL (32.0-36.0); Mean Corpuscular Hemoglobin 28.2 pg (27.0-31.0); Mean Corpuscular Volume 84.8 fL (78.0-98.0); Mean Platelet Volume 9.4 fL (7.4-10.4); Platelet Count 255 thou/uL (130-400); RBC Distribution Width 15.1 % (11.5-14.5); Red Blood Cell (RBC) Count 3.77 mill/uL (4.70-6.10); White Blood Cell (WBC) Count 10.9 thou/uL (4.8-10.8)
[2020-05-23 05:19] LABS: Anion Gap 10 mmol/L (10-20); BUN (Urea Nitrogen) 26 mg/dL (8.4-25.7); Calc. Creatinine Clearance 52 mL/min (70-130); Calcium 8.9 mg/dL (7.8-10.44); Carbon Dioxide 26 mmol/L (23-31); Chloride 108 mmol/L (98-107); Estimated GFR-MDRD 49; Glucose 117 mg/dL (83-110); Potassium 4.1 mmol/L (3.5-5.1); Sodium 140 mmol/L (136-145)
[2020-05-23] MEDS ORDERED: Carvedilol 3.125 MG TAB PO SCH (08:00)
[2020-05-23] MEDS ORDERED: Insulin Glargine 13 UNITS in Pre-Filled Syringe 1 EACH SC SCH (09:00)
[2020-05-23] MEDS ORDERED: Aspirin Chewable 81 MG TAB PO SCH (09:00)
[2020-05-23] MEDS ORDERED: Atorvastatin Calcium 10 MG TAB PO SCH (09:00)
[2020-05-23] MEDS ORDERED: Colchicine 0.6 MG TAB PO SCH (09:00)
[2020-05-23] MEDS ORDERED: Tamsulosin HCl 0.4 MG CAP PO SCH (09:00)
[2020-05-23] MEDS ORDERED: Amiodarone 200 MG TAB PO SCH (09:00)
--- NOTE | 2020-05-23 12:11 | CT ---
CT CERVICAL SPINE NONCONTRAST: DATE: 05/23/2020 HISTORY: 79-year-old male with bilateral cervical radiculopathy: Bilateral upper extremity paresthesia FINDINGS: There is a small, approximately 0.4 x 0.5 x 0.7 cm well-circumscribed soft tissue density polypoid ma ss in the lumen of the trachea, broadly abutting the left inner wall, located approximately 4.5 to 5 cm caudal to the vocal cords. Clusters of surgical clips in the bilateral carotid spaces. Unremarkable larynx. No thyromegaly. No high-grade cervical lymphadenopathy. There are no jumped or perched facets. There is no evidence of acute fracture. The vertebral body hei ghts are maintained. There is no prevertebral soft tissue swelling. No high-grade disc space narrowing at any level. No high-grade central spinal canal stenosis at any level. No large disc herniation identified at any level. Small bilateral uncinate process osteophytes encroach upon bilateral neural foramina, causing mild or mild-moderate neural foraminal stenosis, on the right at C2-3, and bilaterally at C3-4, C4-5, and to a lesser degree C5-6. IMPRESSION: 1. No evidence of acute fracture or acute traumatic subluxation. 2. Mild cervical spondylosis. 3. No high-grade central spinal canal stenosis at any level. 4. Bilateral low-grade neural foraminal stenosis at several levels. 5. Small polypoid mass in the trachea: Focal secretion versus polypoid nonneoplastic growth versus sm all neoplasm. Recommend follow-up CT of neck in several days. If this persists, then consider direct visualization with bronchoscope. Evidence for previous bilateral neck surgery.
[2020-05-23 14:28] VITALS: BP 133/67; TEMP 98.5
[2020-05-23] MEDS ORDERED: Rivaroxaban 10 MG TAB PO SCH (17:00)
[2020-05-23] MEDS ORDERED: Insulin Glargine 30 UNITS in Pre-Filled Syringe 1 EACH SC SCH (21:00)
[2020-05-23] MEDS ORDERED: Prevnar 13-Val Conj/PF 0.5 ML SYRINGE IM ONE (21:00)
--- NOTE | 2020-05-23 22:09 | DIS ---
DATE OF ADMISSION: 05/22/2020 DATE OF DISCHARGE: 05/23/2020 DISCHARGE DIAGNOSES: As of the following; 1. Presyncope. 2. Mild hypotension. 3. Bilateral upper extremity tingling. 4. Coronary artery disease. 5. Non-ST elevation myocardial infarction, recent. HOSPITAL COURSE: The patient is a 79-year-old male, who initially presented to the hospital with a presyncopal episode. The patient had just been released from the hospital on 05/22, came back to the hospital for presyncope. The patient's has recently and the patient stated that when he when he got back home, he felt a little dizzy, just weak and his blood pressure was in the low 100s. The patient felt that he was lightheaded, however, at this time, his niece was around and caught him and helped him down. The patient never lost any consciousness. He recently had a cardiac cath, recommended medical management. He is currently on Xarelto for his atrial fibrillation, atrial flutter. The patient at this time was watched overnight. His orthostatics were negative. I also went ahead and got a cervical spine CT, which indicated that the patient does have some bilateral low grade neural foraminal stenosis at several levels. He also had a small polypoid mass in the trachea. I recommended the patient to follow up with his primary care for further testing such as a CT of the neck for this findings. He might also require a direct visualization with bronchoscopy. The patient at this time feels well. He has been ambulating couple of times and he will be discharged home. The patient's troponins were elevated, however, they were trending downwards from his last admission. MEDICATIONS: The patient's home medications are as of the following; I decreased his losartan from 100 mg to 50 mg daily. I have discontinued his metformin given his creatinine of 1.4. He will continue his. 1. Amiodarone 100 mg a day. 2. Aspirin 81 mg daily. 3. Lipitor 10 mg daily. 4. Coreg 3.125 twice a day. 5. Gemfibrozil 600 mg b.i.d. 6. Insulin Lantus 30 units at night and 13 units in the morning. 7. daily. 8. Protonix 40 mg daily. 9. Ranexa 500 mg b.i.d. 10. Xarelto 20 mg daily. 11. Sertraline 50 mg daily. 12. Tamsulosin 0.5 at bedtime. He has an appointment with his primary care doctor. PHYSICAL EXAMINATION: VITAL SIGNS: Temperature of 98.5, pulse 72, respiratory rate 18, oxygen saturation 96% on room air, and blood pressure 133/67. GENERAL: He is awake, alert, and oriented x3. Does not appear in distress. CV: S1 and S2 present. No murmurs, rubs, or gallops. He will be discharged home. He will follow up with his primary and also with his Cardiology at [facility]. Job ID: [id number]
== END 2020-05-23 18:16 | disposition home or self-care (01) ==
LOC: ERS 14:48 → 2NO 18:06
PROVIDERS: ADMIT Internal Medicine; ATTEND Internal Medicine
DX: I95.1 Orthostatic hypotension (principal); I25.10 Atherosclerotic heart disease of native coronary artery without angina pectoris; I21.4 Non-ST elevation (NSTEMI) myocardial infarction; I10 Essential (primary) hypertension; E11.9 Type 2 diabetes mellitus without complications; I48.91 Unspecified atrial fibrillation; N17.9 Acute kidney failure, unspecified; E78.5 Hyperlipidemia, unspecified; M47.22 Other spondylosis with radiculopathy, cervical region; Z79.01 Long term (current) use of anticoagulants; Z79.4 Long term (current) use of insulin; Z79.82 Long term (current) use of aspirin; Z79.899 Other long term (current) drug therapy; Z88.0 Allergy status to penicillin; Z88.8 Allergy status to other drugs, medicaments and biological substances; Z86.73 Personal history of transient ischemic attack (TIA), and cerebral infarction without residual deficits; Z95.5 Presence of coronary angioplasty implant and graft
CPT/HCPCS: 36415; 36416; 71045; 72125; 80048; 80053; 81001; 82550; 82553; 83605; 83735; 83880; 84443; 84484; 85025; 93005; G0378; J1815